=== PATIENT | male | born 1990 | race Caucasian/White ===

== ENCOUNTER 2020-11-18 13:18 | Outpatient (REF) | payer MEDICARE, MEDICAID, SELFPAY ==
[2020-11-18 14:20] LABS: MANUAL DIFF FLAG NO
[2020-11-18 14:30] LABS: Basophils Percent Auto 0.5 % (0-2); Eosinophils Percent Auto 0.7 % (0-4); Hematocrit 45.5 % (42-52); Hemoglobin 15.4 g/dl (14.0-18.0); Imm Gran Abs Auto 0.01 X10*3/uL (0.00-0.03); Imm Gran Pct Auto 0.2 % (0.0-0.4); Lymphocytes Absolute Auto 1.9 X10*3/uL (1.2-4.9); Lymphocytes Percent Auto 34.1 % (20-40); Mean Corpuscular HGB Conc 33.8 g/dl (31.0-36.0); Mean Corpuscular Hemoglobin 29.1 pg (27.0-33.0); Mean Corpuscular Volume 85.8 fL (80-98); Mean Platelet Volume 9.4 fL (9.4-12.4); Monocytes Absolute Auto 0.4 X10*3/uL (0.1-1.2); Monocytes Percent Auto 6.4 % (2-11); Neutrophils Absolute Auto 3.2 X10*3/uL (2.0-8.3); Neutrophils Percent Auto 58.1 % (45-73); Platelet Count 176 X10*3/uL (160-400); White Blood Count 5.5 X10*3/uL (4.8-10.8)
[2020-11-18 15:01] LABS: TSH reflex Free T4 1.42 uIU/mL (0.32-4.0)
[2020-11-18 15:07] LABS: Alanine Aminotransferase 32 U/L (0-40); Albumin Level 4.5 g/dL (3.5-5.0); Alkaline Phosphatase 65 U/L (39-117); Anion Gap 12 (12-20); Aspartate Amino Transferase 20 U/L (5-37); Bilirubin Total 0.6 mg/dL (0.0-1.0); Blood Urea Nitrogen 16 mg/dL (9-16); Calcium 8.8 mg/dL (8.4-10.2); Carbon Dioxide 26 mmol/L (22-29); Chloride 107 mmol/L (96-108); Cholesterol 143 mg/dL; Estimated Glomerular Filt Rate > 60; Glucose Fasting 103 mg/dL (60-99); HDL Cholesterol 59 mg/dL; LDL Cholesterol Calculated 70 mg/dl; Potassium 4.3 mmol/L (3.3-5.1); Sodium 141 mmol/L (135-145); Total Protein 6.9 g/dL (6.5-8.0); Triglycerides 70 mg/dL
== END 2020-11-18 13:19 | disposition home or self-care (01) ==
LOC: HO.HMGCLDS 13:18
PROVIDERS: PCP Nurse Practitioner Family; Visit Provider Nurse Practitioner Family
DX: R53.83 Other fatigue (principal)
CPT/HCPCS: 36415; 80053; 80061; 84443; 85025

== ENCOUNTER 2020-12-16 15:26 | Outpatient (REF) | payer MEDICARE, MEDICAID, SELFPAY ==
--- NOTE | ~2020-12-16 | CT_ITS ---
EXAMINATION: CT ABDOMEN WITH CONTRAST CLINICAL INFORMATION: Periumbilical pain COMPARISON: None TECHNIQUE: Contiguous axial thin section helical images of the abdomen were performed following the administration of oral contrast and 85 mL of Omnipaque 350 intravenous contrast. The data set was reformatted in the coronal and sagittal planes and reviewed on an independent workstation. This CT examination was performed using dose optimization techniques as appropriate, variously including the following: *Automated exposure control *Adjustment of mA and/or kV according to patient size (this includes techniques or standardized protocols for targeted exams where dose is matched to indication/reason for exam; i.e. extremities or head) *Use of iterative reconstruction technique DLP: 168 mGy-cm FINDINGS: LUNG BASES: Clear LIVER, GALLBLADDER, AND BILIARY TREE: Unremarkable PANCREAS: Unremarkable SPLEEN: Unremarkable ADRENAL GLANDS AND KIDNEYS: Unremarkable BOWEL LOOPS: Unremarkable. No hernia is seen. LYMPH NODES: Unremarkable VASCULAR: Unremarkable. BONES: Unremarkable CT/CT abdomen w con IMPRESSION: Unremarkable examination. No abdominal wall hernia seen.
== END 2020-12-16 15:27 | disposition home or self-care (01) ==
LOC: HO.CT 15:26
PROVIDERS: Visit Provider Nurse Practitioner Family
DX: R10.33 Periumbilical pain (principal)
CPT/HCPCS: 74160

== ENCOUNTER → 2021-03-26 13:07 | Outpatient (BNVA) | payer MEDICARE, MEDICAID, SELFPAY | PROVIDERS: PCP Nurse Practitioner Family; Visit Provider Urology | DX: N48.6 Induration penis plastica (principal) | CPT/HCPCS: 99202 ==

== ENCOUNTER → 2021-09-25 11:56 | Outpatient (BNVA) | payer MEDICARE, MEDICAID, SELFPAY | PROVIDERS: PCP Nurse Practitioner Family; Visit Provider Urology | DX: Z13.89 Encounter for screening for other disorder (principal) | CPT/HCPCS: Q3014 ==

== ENCOUNTER 2022-01-27 15:07 | Outpatient (REF) | payer MEDICARE, MEDICAID, SELFPAY ==
--- NOTE | ~2022-01-27 | US_ITS ---
EXAMINATION: US VENOUS ULTRASOUND WITH DOPPLER LOWER EXTREMITY, LEFT CLINICAL INFORMATION: Calf pain COMPARISON: None TECHNIQUE: Ultrasound of the deep veins is performed from the hip to the calf with compression sonography and color and pulse Doppler assessment. Spectral analysis with color-flow imaging is performed. FINDINGS: There is normal venous compression and respiratory variation and augmented flow. The visualized common femoral vein, superficial femoral vein, profunda femoral vein, popliteal vein, and the trifurcation region shows no evidence of deep venous thrombosis. There is no significant popliteal fossa cyst. If the patient's symptoms persist, followup ultrasound in 5 days 7 days might be of value to exclude proximal propagation from a non-visualized calf vein. US/US venous duplex LE LT IMPRESSION: No DVT demonstrated in the left lower extremity.
== END 2022-01-27 15:08 | disposition home or self-care (01) ==
LOC: HO.HMGCX 15:07
PROVIDERS: PCP Nurse Practitioner Family; Visit Provider Nurse Practitioner Family
DX: M79.662 Pain in left lower leg (principal)
CPT/HCPCS: 93971

== ENCOUNTER → 2022-02-01 13:25 | Outpatient (BNVA) | payer MEDICARE, MEDICAID, SELFPAY | PROVIDERS: PCP Nurse Practitioner Family; Visit Provider Orthopaedic Surgery | DX: M79.89 Other specified soft tissue disorders (principal); R20.0 Anesthesia of skin; R20.2 Paresthesia of skin | CPT/HCPCS: 99202 ==

== ENCOUNTER 2022-02-18 06:16 | Day surgery (SDC) | payer MEDICARE, MEDICAID, SELFPAY ==
--- NOTE | 2022-02-17 08:42 | HO.ANESPROP2 ---
Documented by User: Emely Blanc NP 02/17/22 08:43 HPI - Anesthesia Eval Consult details Narrative: 31yo M Left Volar wrist Excisional Mass biopsy, Carpal Tunnel Release PMFSH Active Problems Active Problems: All Active Problems (Updated 02/01/22 @ 14:29 by Carmen Jackson MD) Numbness and tingling in left hand (Acute) Mass of soft tissue of left upper extremity (Acute) Tenderness of left calf (Acute) Ganglion cyst (Acute) Sprain of left hand (Acute) Erectile dysfunction (Acute) Anxiety (Acute) OCD (obsessive compulsive disorder) (Acute) Umbilical pain (Acute) Peyronie disease (Acute) Fatigue (Acute) Past Medical History Medical History Anxiety OCD (obsessive compulsive disorder) Family History Family History Father Recovering alcoholic Mental illness in member of household Mother Mental illness in member of household Recovering alcoholic Surgical History Surgical History No pertinent past surgical history Social History Social History Housing: Apartment Alcohol intake: current Alcohol intake frequency: holidays/special occasions only Patient Tobacco Use Status: Never used Tobacco e-Cigarette/Vaping Use: Never Used Second Hand Smoke Exposure: Yes Use of substances other than those prescribed or required for medical reasons: Yes Substance Use Type: Marijuana Substance Use Type Other:: states no marijuana for 2 weeks Substance Use Frequency: Daily Are you DNR?: No Advance Directives: No Advance Directives Information Provided: Yes Nutrition Risks: No Nutritional Risk service: No Current occupational status: disabled 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 Meds Allergies Allergy/AdvReac Type Severity Reaction Status Date / Time mold Allergy Unknown Unknown Verified 02/18/22 06:47 pollen Allergy Unknown Unknown Uncoded 02/01/22 13:49 Home Medications Medication Instructions Recorded Confirmed Last Taken Type risperidone 3 mg tablet mg PO 01/27/22 01/27/22 Unknown History hydroxyzine HCl 50 mg tablet mg PO 02/01/22 Unknown History Exam Exam Date and Time: February 17, 2022841 Assessment and Plan Assessment Anesthesia Assessment: Chart Reviewed Documented by User: Jimi Sanchez MD 02/18/22 08:49 HPI - Anesthesia Eval Consult details Narrative: 31yo M Left Volar wrist Excisional Mass biopsy, Carpal Tunnel Release right eye redness with whitish discharge noted, pt reports itching started this morning PMFSH Past Medical History Medical History Anxiety OCD (obsessive compulsive disorder) Family History Family History Father Recovering alcoholic Mental illness in member of household Mother Mental illness in member of household Recovering alcoholic Family history of problems with anesthesia: No Surgical History Surgical History No pertinent past surgical history History of Problems with Anesthesia: No Social History Social History Housing: Apartment Alcohol intake: current Alcohol intake frequency: holidays/special occasions only Patient Tobacco Use Status: Never used Tobacco e-Cigarette/Vaping Use: Never Used Second Hand Smoke Exposure: Yes Use of substances other than those prescribed or required for medical reasons: Yes Substance Use Type: Marijuana Substance Use Type Other:: states no marijuana for 2 weeks Substance Use Frequency: Daily Are you DNR?: No Advance Directives: No Advance Directives Information Provided: Yes Nutrition Risks: No Nutritional Risk service: No Current occupational status: disabled 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 Meds Allergies Allergy/AdvReac Type Severity Reaction Status Date / Time mold Allergy Unknown Unknown Verified 02/18/22 06:47 pollen Allergy Unknown Unknown Uncoded 02/01/22 13:49 Home Medications Medication Instructions Recorded Confirmed Last Taken Type risperidone 3 mg tablet mg PO 01/27/22 01/27/22 Unknown History hydroxyzine HCl 50 mg tablet mg PO 02/01/22 Unknown History Exam Airway Mallampati Class: III TM Dist: >3cm Neck ROM: Full Assessment and Plan Assessment Anesthesia Assessment: Anesthesia Plan Discussed Final Anesthetic Review Family History of Problems with Anesthesia: No History of Problems with Anesthesia: No NPO: Yes ASA Class: II Final Preanesthetic Review: No Changes in Pt Med Stat, Meds/Allgs Chart Reviewed, Consent Obtained/Reviewed and Anes Risks/Benef Reviewed Patient Risk: Low Procedure Risk: Low Anesthetic Plan Anesthetic Plan: GA Disposition: Standard PACU
[2022-02-18] VITALS (10 sets, daily range): BP systolic 129–144; BP diastolic 83–95; PULSE 56–102; RESP 14–18; TEMP 36.2–36.6; O2SAT 98–100; BMI 25.0
[2022-02-18] MEDS: Lactated Ringers 1,000 ML 100 ML IVCONT (06:57)
[2022-02-18] MEDS: Albuterol/Iprat 2.5/0.5MG 3 ML AMPUL.NEB INHALE (08:52)
--- NOTE | 2022-02-18 08:59 | MHC.SHP ---
Pre-Procedural Eval Section A Date of Service: 02/18/22 The patient is an INPATIENT: No Changes since office visit: No Cold of Flu in the past 2 weeks, No New Medical Problems, No Changes in Medication and No Patient answered all questions The History & Physical has been completed within 30 days and I have reviewed it.: Yes Section B Chief Complaint: carpal tunnel syndrome and left volar wrist mass Allergies: Allergies Allergy/AdvReac Type Severity Reaction Status Date / Time mold Allergy Unknown Unknown Verified 02/18/22 06:47 pollen Allergy Unknown Unknown Uncoded 02/01/22 13:49 Plan I have reviewed the history and physical and performed a pertinent physical examination on my patient. No changes have occurred unless specified.
--- NOTE | 2022-02-18 08:59 | W.PM.OPN ---
Operative Note Operative Note Date of Service: 02/18/22 Narrative: Operative Note Narrative: Preop diagnosis: 1. leftCarpal tunnel syndrome 2. Left volar wrist mass Postop diagnosis: Same Procedure: 1. Left wrist flexor tenosynovectomy 2. Excisional biopsy of mass from the FDP tendon to the middle finger 3. Left carpal tunnel release Surgeon: Carmen Jackson MD Anesthesia: General Anesthesia Findings: hypertrophic tenosynovium found about the flexor tendons of the patient's left wrist as they pass through the carpal tunnel. Also found was a solid soft tissue mass that measured approximately 1 cm in diameter by perhaps 1.2 cm in length and found attached to the volar surface of the FDP tendon to the middle finger just distal to the carpal tunnel and roughly at the proximal origin of the Lumbrical muscle belly. Implants: none Tourniquet time: 21 minutes EBL: 5.0 ml Specimen: left volar wrist mass and tenosynovium sent for histopathology. A sample of the hypertrophic tenosynovium was also sent for cultures including AFB. Drains: None Complications: None Disposition: Brought to the recovery room in stable condition Plan: Follow-up in 10-14 days for wound check, suture removal and to check pathology Indications: The patient is a 31 year old man with left carpal tunnel syndrome and a left volar wrist mass which appears to be attached to 1 of the flexor tendons as it passes through the carpal tunnel. . The risks and benefits of operative treatment, including but not limited to risk of damage to blood vessels, nerves, tendons, infection, recurrence, persistent pain or numbness, incomplete resolution of preoperative symptoms, or need for further surgery were discussed with the patient and they wished to proceed with surgery. Procedure: Once consent was obtained patient was brought back to the operating suite and placed in the operating table in a supine position. . Perioperative antibiotics and anesthesia was administered by the anesthesia team. A tourniquet was applied to the proximal aspect of the Left upper extremity and the limb was prepped and draped in a standard surgical fashion. The limb was elevated exsanguinated with Esmarch bandage and the tourniquet inflated to 250 mm of mercury for a total tourniquet time of Twenty-one minutes. A 2.5 cm longitudinal incision was made centered over the left carpal tunnel then extended somewhat ulnarly at the distal wrist crease for another 1.5 cm. The incision was made through the skin to the subcutaneous tissues using a #15 blade. Dissection was made down to the level of the transverse carpal ligament and volar forearm fashion with care being taken to protect the palmar cutaneous nerve. Once the transverse carpal ligament was clearly visualized, a longitudinal incision was made in the transverse carpal ligament 1st using a #15 blade, then using tenotomy scissors under direct visualization. Care was taken to look for and protect the motor branch of the median nerve when seen in this area. Once satisfied with our carpal tunnel release the wound was irrigated with normal saline. With the fingers flexed I was able to palpate the mass in the mid palm just distal to our carpal tunnel release. I noted that he had hypertrophic tenosynovium that was abundant and about the flexor tendons as they pass through the carpal tunnel. I then performed a tenosynovectomy freeing up some of the flexor tendons in this area and placing some of the abundant tenosynovium on the back table to be sent for both histopathology and for cultures including Gram stain A&A AFB and fungus. The FDP tendons to the middle and index fingers were somewhat attached through this hypertrophic tenosynovium, and there was a solid oval soft tissue mass measuring approximately 1 cm in diameter by 1.5 cm in length the was attached to the volar surface of the FDP tendon to the middle finger. I was able to draw this tendon back roughly to the carpal tunnel area. I was then able to dissect the mass free from the FDP tendon to the middle finger. It should be noted this was also roughly at the proximal origin of the lumbrical muscle belly. The mass was then removed from the patient and placed on the back table to be sent for histopathology. After the mass was removed from the patient, I did make a small longitudinal incision in the mass. It is a solid soft tissue mass and not a cyst. At this point the tourniquet was deflated and hemostasis obtained with a brief period of local pressure and bipolar electrocautery. The wound was copiously irrigated with normal saline. The skin edges were reapproximated with 5-0 nylon suture. The wound was infiltrated with some 0.25% plain Marcaine for postop pain control and a sterile dressing was applied. The patient appears to have tolerated the procedure well and with no complications. All digits were well vascularized conclusion of the case.
[2022-02-18] MEDS: ondansetron HCL 4 MG/2 ML VIAL IVPUSH (10:46)
== END 2022-02-18 12:50 | disposition home or self-care (01) ==
PROVIDERS: PCP Nurse Practitioner Family; Visit Provider Orthopaedic Surgery
PROC: (CPT 64721; principal; 2022-02-18 08:40)
PROC: (CPT 64721; 2022-02-18 08:40)
DX: G56.02 Carpal tunnel syndrome, left upper limb (principal); R20.0 Anesthesia of skin; M79.89 Other specified soft tissue disorders; R22.32 Localized swelling, mass and lump, left upper limb; F42.9 Obsessive-compulsive disorder, unspecified; F41.9 Anxiety disorder, unspecified; F12.90 Cannabis use, unspecified, uncomplicated; Z79.899 Other long term (current) drug therapy
CPT/HCPCS: 64721; 25115; 87071; 87073; 87102; 87116; 87205; 88304; 94640; J0690; J1100; J2250; J2405; J2550; J3010

== ENCOUNTER → 2022-03-23 14:55 | Outpatient (BNVA) | payer MEDICARE, MEDICAID, SELFPAY | PROVIDERS: PCP Nurse Practitioner Family; Visit Provider Urology | DX: N48.6 Induration penis plastica (principal); N52.9 Male erectile dysfunction, unspecified | CPT/HCPCS: 99212 ==

== ENCOUNTER 2022-04-21 09:30 | Outpatient (RCR) | payer MEDICARE, MEDICAID, SELFPAY ==
--- NOTE | 2022-04-21 10:11 | MHC.OT.OD ---
[address] [phone] F: [phone] Occupational Therapy Daily Note Start Time: 929 End Time: 100 Visit Duration: 35 Billable Time: 30 Date of Evaluation: 03/10/22 Treatments to Date: 4 Cancellations to Date: No Shows to Date: Authorized Treatment: Insurance End Date: Subjective: I've been slacking with the exerices..If I use both hands I can lift like 35 lbs. Can't lift like a heavy trash bag with my left Pain Score: 2 Pain Location: left carpal scat Objective: Measurements taken Wrist AROM flex/ext, deviation and sup/pro x 20 each. Progressed to 2 and 3 lb wrist ext .. 3 and 5 lb wrist flexion curls 8 lb bicep curls Practice with hand gripper Practice with FDT pre test. Practiced passive wrist ext stretch ,partial wt bearing at the wall with wall push ups Progressed to eccentric wrist ext with yellow Theraband loop. 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 Issued for HEP Tests and Measures: Residential Counselor 80 lb L 60 lb Functional Dexterity Test R: 23.8 seconds L: 26.0 seconds Assessment: Goals met for pain, ROM, strength and hand dexterity. LUE strength improving with HEP . I anticipate continued improvement with his HEP . Skilled OT not needed at this time. 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
== END 2022-04-21 10:12 | disposition home or self-care (01) ==
LOC: HO.OT 09:30
PROVIDERS: PCP Nurse Practitioner Family; Visit Provider Orthopaedic Surgery
DX: M79.89 Other specified soft tissue disorders (principal)
CPT/HCPCS: 97110; 97165

== ENCOUNTER → 2022-04-27 13:32 | Outpatient (BNVA) | payer MEDICARE, MEDICAID, SELFPAY | PROVIDERS: PCP Nurse Practitioner Family; Visit Provider Physician Assistant | DX: Z09 Encounter for follow-up examination after completed treatment for conditions other than malignant neoplasm (principal) | CPT/HCPCS: 99212 ==

== ENCOUNTER 2022-09-22 11:08 | Outpatient (REF) | payer MEDICARE, MEDICAID, SELFPAY ==
[2022-09-22 11:24] LABS: MANUAL DIFF FLAG NO
[2022-09-22 12:05] LABS: Basophils Percent Auto 0.4 % (0-2); Eosinophils Percent Auto 0.8 % (0-4); Hematocrit 44.2 % (42.0-52.0); Hemoglobin 15.4 g/dl (14.0-18.0); Imm Gran Abs Auto 0.01 X10*3/uL (0.00-0.03); Imm Gran Pct Auto 0.2 % (0.0-0.4); Lymphocytes Absolute Auto 1.4 X10*3/uL (1.2-4.9); Lymphocytes Percent Auto 27.5 % (20-40); Mean Corpuscular HGB Conc 34.8 g/dl (31.0-36.0); Mean Corpuscular Volume 83.2 fL (80.0-98.0); Mean Platelet Volume 9.3 fL (9.4-12.4); Monocytes Absolute Auto 0.4 X10*3/uL (0.1-1.2); Neutrophils Absolute Auto 3.2 x10*3/uL (2.0-8.3); Neutrophils Percent Auto 63.1 % (45-73); Platelet Count 163 X10*3/uL (160-400); Red Blood Count 5.31 X10*6/uL (4.60-5.80); Red Cell Distribution Width 11.8 % (11.0-16.0); White Blood Count 5.1 X10*3/uL (4.8-10.8)
[2022-09-22 12:41] LABS: Estimated Average Glucose 97 mg/dL
[2022-09-22 12:57] LABS: Anion Gap 14 (12-20); Blood Urea Nitrogen 15 mg/dL (9-16); Carbon Dioxide 24 mmol/L (22-29); Chloride 108 mmol/L (96-108); Cholesterol 152 mg/dL; Estimated Glomerular Filt Rate > 60; Glucose Random 98 mg/dL (60-115); HDL Cholesterol 44 mg/dL; LDL Cholesterol Calculated 99 mg/dl; Potassium 4.3 mmol/L (3.3-5.1); Sodium 142 mmol/L (135-145); Triglycerides 47 mg/dL
[2022-09-23 05:33] LABS: Prolactin 17.9 ng/mL (2.0-18.0)
== END 2022-09-22 11:09 | disposition home or self-care (01) ==
LOC: HO.LAB 11:08
PROVIDERS: PCP Nurse Practitioner Family; Visit Provider Clinical Nurse Specialist Psychiatric/Mental Health, Child & Adolescent
DX: F33.1 Major depressive disorder, recurrent, moderate (principal); Z79.899 Other long term (current) drug therapy
CPT/HCPCS: 36415; 80048; 80061; 83036; 84146; 85025

== ENCOUNTER → 2022-11-25 10:37 | Outpatient (BNVA) | payer MEDICARE, MEDICAID, SELFPAY | PROVIDERS: PCP Nurse Practitioner Family; Visit Provider Urology | DX: N48.6 Induration penis plastica (principal); N52.9 Male erectile dysfunction, unspecified | CPT/HCPCS: 99212 ==

== ENCOUNTER 2023-05-31 09:52 | Outpatient (AMB) | payer MEDICARE, MEDICAID, SELFPAY ==
--- NOTE | 2023-05-31 09:52 | A.OFFVIS_ITS ---
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 He is a patient of Dr. Mccallum. He is seen for the following urologic reasons - Peyronie's disease - erectile dysfunction Telemedicine Evaluation 15 min Consultation Carnival Parveen Video attempted Peyronie's stable Does have persistent erectile related issues Secondary to psychiatric medications Does better when on low-dose daily had tadalafil. Also had good response when added pentoxyfilline Prescriptions provided 6 month follow-up Peyronie's disease with associated erectile dysfunction Chronic sleep disruption Heavy marijuana use - 03/05 has ceased Discussion today regarding lack of restorative sleep Recommendation to decrease marijuana use and improve sleep hygiene Prescription provided for antioxidant therapy Written information provided regarding Peyronie's disease No evidence of calcification PFSH Medical History Anxiety OCD (obsessive compulsive disorder) Surgical History No pertinent past surgical history Family History Father Recovering alcoholic Mental illness in member of household Mother Mental illness in member of household Recovering alcoholic Social History Housing: Apartment Alcohol intake: current Alcohol intake frequency: holidays/special occasions only Patient Tobacco Use Status: Never used Tobacco e-Cigarette/Vaping Use: Never Used Second Hand Smoke Exposure: Yes Substance Use Type: Marijuana service: No Current occupational status: disabled 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 Review of Systems Const All systems reviewed & are unremarkable except as noted in HPI and below Reports no additional complaints Resp Reports no additional complaints GI Reports no additional complaints Reports as per HPI Musc Reports no additional complaints Physical Exam Telemedicine evaluation Appropriate responses Regular breathing rate and rhythm HEENT Head: Yes normal to inspection Ears: hearing grossly normal bilaterally Eyes General: appearance normal, both eyes and all related structures Neck Neck: Yes normal visual inspection Chest Chest palpation & inspection: normal inspection of the chest Resp Effort & Inspection: normal respiratory effort and able to speak in complete sentences Assessment & Plan Assessment & Plan (1) Erectile dysfunction: Code(s): N52.9 - Male erectile dysfunction, unspecified (2) Peyronie disease: Code(s): N48.6 - Induration penis plastica Plan Prescription provided 6 month follow-up Medications: New pentoxifylline ER administer with meals 400 mg PO BID 90 days 180 tabs 1RF N48.6 - Induration penis plastica Refilled tadalafil 5 mg PO Q OTHER DAY 90 days 90 tabs 1RF sexual activity Patient Instructions: Imaging studies, laboratory and physical exam results were discussed and reviewed in detail. No major barriers to patient understanding were identified. An opportunity to ask questions regarding the treatment plan was provided. All questions were answered. The patient expressed understanding and agreement with the above treatment plan. The patient is aware they should contact our office by phone for worsening of their current condition or the appearance of new urologic symptoms. Compliance is encouraged with any medications and followup testing that is ordered. It is a privilege to participate in the urologic care of your patient. If you have any questions or concerns regarding treatment for the above conditions, or other urologic issues, please do not hesitate to contact me. The office telephone contact is [phone]. This note is constructed using voice recognition software. While every effort has been made to ensure accuracy ceo and co founder errors may have been included. Yours sincerely, Dr Ye Hernandez MD, [facility] - Urology Providers of Expert, Compassionate Care for the Genitourinary System Quality Reporting (2019) Adult ([facility] 138/10/06/68) Smoking risk assessment performed?: Yes Patient Tobacco Use Status: Never used Tobacco Telehealth Telehealth Location of provider rendering services: practice address Location of patient: address on file Patient Identification confirmed using: Name, : Yes Telehealth method: video Patient verbally consented to treatment: Yes Patient verbally consented to billing insurance company: Yes Patient informed of any privacy concerns related to visit: Yes Coding Level of Care Code Tele Est Pt Level 3 (17438) Diagnoses Erectile dysfunction N52.9 Peyronie disease N48.6
== END 2023-05-31 11:07 | disposition home or self-care (01) ==
LOC: HO.HUSH 09:52
PROVIDERS: PCP Nurse Practitioner Family; Visit Provider Urology
DX: N52.9 Male erectile dysfunction, unspecified (principal); N48.6 Induration penis plastica
CPT/HCPCS: 99442

== ENCOUNTER → 2023-05-31 09:52 | Outpatient (BNVA) | payer MEDICARE, MEDICAID, SELFPAY | PROVIDERS: PCP Nurse Practitioner Family; Visit Provider Urology ==

== ENCOUNTER 2023-11-05 10:24 | Outpatient (AMB) | payer MEDICARE, MEDICAID, SELFPAY ==
[2023-11-05 11:02] VITALS: BP 110/60; PULSE 66; TEMP 36.4; O2SAT 97; BMI 26.6
--- NOTE | 2023-11-05 11:02 | AM.OFFWIN_ITS ---
Intake Vital Signs 11/05/23 11:02 Height 6 ft 2 in Weight 207 lb BMI 26.6 BP 110/60 Blood Pressure Location Lt brachial Position Sitting Pulse 66 Pulse Source Pulse Oximeter Temp 97.6 F Temp Source Oral Pulse Oximetry (%) 97 Oxygen Delivery Method Room Air Intake Visit Reasons: EP ear wax removal, Burn on finger ?Infection Intake Note: Pt is here today c/o bilateral ear wax blocked and Rt hand middle finger burned it ?infection * Patient Tobacco Use Status: Never used Tobacco Allergies mold Allergy (Unknown, Verified 11/05/23 11:02) Unknown pollen Allergy (Unknown, Uncoded 11/05/23 11:02) Unknown HPI EP ear wax removal, Burn on finger ?Infection HPI Details Patient is a 33-year-old male who comes the walk-in clinic complaining of feeling his ears blocked for some time now, with decreased hearing. He denies recent respiratory infection, ear pain, apparent discharge, dizziness or vertigo, or other associated symptoms. Reviewed past medical history with patient [facility] Medical History Anxiety OCD (obsessive compulsive disorder) Surgical History No pertinent past surgical history Family History Father Recovering alcoholic Mental illness in member of household Mother Mental illness in member of household Recovering alcoholic Social History Housing: Apartment Alcohol intake: current Alcohol intake frequency: holidays/special occasions only Patient Tobacco Use Status: Never used Tobacco e-Cigarette/Vaping Use: Never Used Second Hand Smoke Exposure: Yes Substance Use Type: Marijuana service: No Current occupational status: disabled 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 Physical Exam Vital Signs: Last Vital Signs Temp 97.6 F 11/05/23 11:02 Pulse 66 11/05/23 11:02 BP 110/60 11/05/23 11:02 Pulse Ox 97 11/05/23 11:02 Oxygen Delivery Method Room Air 11/05/23 11:02 BMI result Body Mass Index 26.6 HEENT Ears: hearing grossly normal bilaterally, external ears normal, EAC's normal (Cerumen evacuated adequately) and TM abnormal (Some erythema post ear lavage) Office Procedures Cerumen Removal From which ear canal was the cerumen removed: bilateral Removal: irrigation Notes: patient tolerated procedure well and no complications 90997-Lof Irrigation/Lavage Assessment & Plan Assessment & Plan (1) Cerumen impaction: Code(s): H61.20 - Impacted cerumen, unspecified ear Qualifiers: Laterality: bilateral Qualified Code(s): H61.23 - Impacted cerumen, bilateral Plan: Patient with history of excessive cerumen production, had bilateral ear canals irrigated today with removal cerumen adequately, and symptoms of hearing loss and blocked sensation was resolved. No complications with procedure. He will follow up if any issues arise Coding Level of Care Code Est Pt Level 3 (52853) Diagnoses Bilateral impacted cerumen H61.23 Laterality: bilateral CPT Codes Office Procedure - CPT: 64328-Udm Irrigation/Lavage ([id number])
== END 2023-11-05 14:39 | disposition home or self-care (01) ==
PROVIDERS: PCP Nurse Practitioner Family; Visit Provider Physician Assistant Medical
DX: H61.23 Impacted cerumen, bilateral (principal)
CPT/HCPCS: 69209; 99213

== ENCOUNTER 2023-11-29 11:40 | Outpatient (AMB) | payer MEDICARE, MEDICAID, SELFPAY ==
--- NOTE | 2023-11-29 11:45 | A.OFFVIS_ITS ---
Intake Intake Visit Reasons: 6M Med Review(pentoxifylline)Confirmed Intake Note: Patient is Present for Follow Up Urology Medication: Tadalafil, Pentoxifyline Antibiotic Allergies: None Blood Thinners: None Allergies mold Allergy (Unknown, Verified 11/05/23 11:02) Unknown pollen Allergy (Unknown, Uncoded 11/05/23 11:02) Unknown Medication List - Last Reconciled 11/29/23 by Ye Hernandez MD budesonide-formoterol 80-4.5 mcg/actuation (Symbicort) 2 puffs inhalation BID 30 days bupropion HCl SR mg PO fluticasone propionate 50 mcg/actuation 1 spray intranasal BID 30 days paliperidone palmitate (Invega Sustenna) mg IM pentoxifylline ER 400 mg PO ONCE 90 days propranolol mg PO tadalafil 5 mg PO Q OTHER DAY 90 days HPI HPI Comments History of Present Illness Details Rogelio is a pleasant male. He is a patient of Dr. Mccallum. He is seen for the following urologic reasons - Peyronie's disease - erectile dysfunction Peyronie's stable Does have persistent erectile related issues Secondary to psychiatric medications Did have recent hospital admission and has had some issues since change in medications Would like to continue with low-dose tadalafil and daily pentoxifylline 12m f/u Peyronie's disease with associated erectile dysfunction Chronic sleep disruption Heavy marijuana use - 03/05 has ceased Discussion today regarding lack of restorative sleep Recommendation to decrease marijuana use and improve sleep hygiene Prescription provided for antioxidant therapy Written information provided regarding Peyronie's disease No evidence of calcification PFSH Medical History Anxiety OCD (obsessive compulsive disorder) Surgical History No pertinent past surgical history Family History Father Recovering alcoholic Mental illness in member of household Mother Mental illness in member of household Recovering alcoholic Social History Housing: Apartment Alcohol intake: current Alcohol intake frequency: holidays/special occasions only Patient Tobacco Use Status: Never used Tobacco e-Cigarette/Vaping Use: Never Used Second Hand Smoke Exposure: Yes Substance Use Type: Marijuana service: No Current occupational status: disabled 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 Review of Systems Const Denies chills and Denies fever(s) Card Reports no additional complaints and Denies syncope Resp Denies cough GI Denies abdominal pain and Denies heartburn Reports as per HPI and Denies change in libido Neuro Denies syncope Psych Denies change in libido Endo Denies change in libido Physical Exam Const General: cooperative, healthy appearing, comfortable and no acute distress Orientation/consciousness: patient oriented x3 HEENT Face and sinus: Yes normal facial exam Mouth: moist mucous membranes Neck Neck: Yes normal visual inspection, Yes full ROM and Yes trachea midline Chest Chest palpation & inspection: normal inspection of the chest Resp Effort & Inspection: normal respiratory effort, able to speak in complete sentences and no respiratory distress GI Inspection: Yes normal to inspection Back/Spine/Pelvis Cervical Spine: normal cervical lordosis Thoracic/Lumbar Spine: thoracic and lumbar spine normal to inspection Skin General skin exam: no rashes or lesions noted Neuro General: patient oriented x3, gait normal, tone normal and moves all extremities Extrem General: Yes normal to inspection and Yes capillary refill normal Assessment & Plan Assessment & Plan (1) Peyronie disease: Code(s): N48.6 - Induration penis plastica (2) Erectile dysfunction: Code(s): N52.9 - Male erectile dysfunction, unspecified Plan Twelve month follow-up Medications: Changed From pentoxifylline ER administer with meals 400 mg PO BID 90 days 180 tabs 1RF N48.6 - Induration penis plastica To pentoxifylline ER administer with meals 400 mg PO ONCE 90 days 90 tabs 3RF N48.6 - Induration penis plastica Refilled tadalafil 5 mg PO Q OTHER DAY 90 days 90 tabs 3RF sexual activity Patient Instructions: Imaging studies, laboratory and physical exam results were discussed and reviewed in detail. No major barriers to patient understanding were identified. An opportunity to ask questions regarding the treatment plan was provided. All questions were answered. The patient expressed understanding and agreement with the above treatment plan. The patient is aware they should contact our office by phone for worsening of their current condition or the appearance of new urologic symptoms. Compliance is encouraged with any medications and followup testing that is ordered. It is a privilege to participate in the urologic care of your patient. If you have any questions or concerns regarding treatment for the above conditions, or other urologic issues, please do not hesitate to contact me. The office telephone contact is [phone]. This note is constructed using voice recognition software. While every effort has been made to ensure accuracy front end developer javascript html css errors may have been included. Yours sincerely, Dr Ye Hernandez MD, [facility] - Urology Providers of Expert, Compassionate Care for the Genitourinary System Quality Reporting (2020) Adult ([facility] 138/10/06/68) Smoking risk assessment performed?: Yes Patient Tobacco Use Status: Never used Tobacco Coding Level of Care Code Est Pt Level 4 (65128) Diagnoses Peyronie disease N48.6 Erectile dysfunction N52.9
== END 2023-11-29 12:08 | disposition home or self-care (01) ==
PROVIDERS: PCP Nurse Practitioner Family; Visit Provider Urology
DX: N48.6 Induration penis plastica (principal); N52.9 Male erectile dysfunction, unspecified
CPT/HCPCS: 99213

== ENCOUNTER → 2023-11-29 11:40 | Outpatient (BNVA) | payer MEDICARE, MEDICAID, SELFPAY | PROVIDERS: PCP Nurse Practitioner Family; Visit Provider Urology | DX: N48.6 Induration penis plastica (principal); N52.9 Male erectile dysfunction, unspecified | CPT/HCPCS: 99212 ==

== ENCOUNTER 2023-12-28 13:16 | Outpatient (REF) | payer MEDICARE, MEDICAID, SELFPAY ==
[2023-12-28 16:12] LABS: MANUAL DIFF FLAG NO
[2023-12-28 16:16] LABS: Basophils Percent Auto 0.4 % (0-2); Eosinophils Percent Auto 0.7 % (0-4); Hematocrit 42.9 % (42.0-52.0); Hemoglobin 14.9 g/dl (14.0-18.0); Imm Gran Abs Auto 0.01 X10*3/uL (0.00-0.03); Imm Gran Pct Auto 0.2 % (0.0-0.4); Lymphocytes Absolute Auto 1.6 X10*3/uL (1.2-4.9); Lymphocytes Percent Auto 28.7 % (20-40); Mean Corpuscular HGB Conc 34.7 g/dl (31.0-36.0); Mean Corpuscular Volume 83.6 fL (80.0-98.0); Monocytes Absolute Auto 0.3 X10*3/uL (0.1-1.2); Monocytes Percent Auto 5.7 % (2-11); Neutrophils Absolute Auto 3.6 x10*3/uL (2.0-8.3); Neutrophils Percent Auto 64.3 % (45-73); Platelet Count 165 X10*3/uL (160-400); Red Blood Count 5.13 X10*6/uL (4.60-5.80); White Blood Count 5.6 X10*3/uL (4.8-10.8)
[2023-12-28 16:23] LABS: Estimated Average Glucose 100 mg/dL; Hemoglobin A1c % 5.1 % (<6.0)
[2023-12-28 16:37] LABS: Anion Gap 14 (12-20); Blood Urea Nitrogen 15 mg/dL (9-16); Carbon Dioxide 23 mmol/L (22-29); Chloride 108 mmol/L (96-108); Cholesterol 149 mg/dL (<200); Estimated Glomerular Filt Rate > 60; Glucose Random 84 mg/dL (60-115); HDL Cholesterol 52 mg/dL (>40); LDL Cholesterol Calculated 85 mg/dL (<100); Sodium 141 mmol/L (135-145); Triglycerides 60 mg/dL (<150)
[2023-12-28 16:53] LABS: Free T4 (Free Thyroxine) 0.84 ng/dL (0.71-1.85); Thyroid Stimulating Hormone 0.64 uIU/mL (0.32-4.0)
== END 2023-12-28 13:17 | disposition home or self-care (01) ==
LOC: HO.HMGCLDS 13:16
PROVIDERS: Visit Provider Clinical Nurse Specialist Psychiatric/Mental Health, Child & Adolescent
DX: Z79.899 Other long term (current) drug therapy (principal)
CPT/HCPCS: 36415; 80048; 80061; 83036; 84146; 84439; 84443; 85025

== ENCOUNTER 2024-03-13 11:01 | Outpatient (REF) | payer MEDICARE, MEDICAID, SELFPAY ==
[2024-03-13 13:31] LABS: MANUAL DIFF FLAG NO
[2024-03-13 14:09] LABS: Basophils Percent Auto 0.4 % (0-2); Eosinophils Percent Auto 0.4 % (0-4); Hematocrit 44.1 % (42.0-52.0); Hemoglobin 15.5 g/dl (14.0-18.0); Imm Gran Abs Auto 0.01 X10*3/uL (0.00-0.03); Imm Gran Pct Auto 0.2 % (0.0-0.4); Lymphocytes Absolute Auto 1.4 X10*3/uL (1.2-4.9); Lymphocytes Percent Auto 28.5 % (20-40); Mean Corpuscular HGB Conc 35.1 g/dl (31.0-36.0); Mean Corpuscular Hemoglobin 28.9 pg (27.0-33.0); Mean Corpuscular Volume 82.3 fL (80.0-98.0); Monocytes Absolute Auto 0.3 X10*3/uL (0.1-1.2); Monocytes Percent Auto 6.3 % (2-11); Neutrophils Absolute Auto 3.3 x10*3/uL (2.0-8.3); Neutrophils Percent Auto 64.2 % (45-73); Platelet Count 158 X10*3/uL (160-400); Red Blood Count 5.36 X10*6/uL (4.60-5.80); Red Cell Distribution Width 12.2 % (11.0-16.0); White Blood Count 5.1 X10*3/uL (4.8-10.8)
[2024-03-13 14:20] LABS: Estimated Average Glucose 97 mg/dL
[2024-03-13 14:42] LABS: Anion Gap 12 (12-20); Blood Urea Nitrogen 15 mg/dL (9-16); Calcium 9.2 mg/dL (8.4-10.2); Carbon Dioxide 24 mmol/L (22-29); Chloride 109 mmol/L (96-108); Cholesterol 157 mg/dL (<200); Estimated Glomerular Filt Rate > 60; Glucose Random 99 mg/dL (60-115); HDL Cholesterol 44 mg/dL (>40); LDL Cholesterol Calculated 100 mg/dL (<100); Potassium 3.9 mmol/L (3.3-5.1); Sodium 141 mmol/L (135-145); Thyroid Stimulating Hormone 0.66 uIU/mL (0.32-4.0); Triglycerides 68 mg/dL (<150)
== END 2024-03-13 11:02 | disposition home or self-care (01) ==
LOC: HO.HMGCLDS 11:01
PROVIDERS: PCP Nurse Practitioner Family; Visit Provider Clinical Nurse Specialist Psychiatric/Mental Health, Child & Adolescent
DX: Z79.899 Other long term (current) drug therapy (principal)
CPT/HCPCS: 36415; 80048; 80061; 83036; 84146; 84443; 85025

== ENCOUNTER 2024-03-31 09:54 | Outpatient (AMB) | payer MEDICARE, MEDICAID, SELFPAY ==
--- NOTE | 2024-03-31 10:52 | MHC.OFFWIV ---
Intake Vital Signs 03/31/24 10:53 Height 6 ft 2 in Weight 210 lb BMI 27.0 BP 124/66 Blood Pressure Location Rt brachial Position Sitting Pulse 56 Pulse Source Pulse Oximeter Temp 98.1 F Temp Source Oral Pulse Oximetry (%) 98 Oxygen Delivery Method Room Air Intake Visit Reasons: EP ?Tick Bite Intake Note: pt c/o ? tick bite. RT arm. States he had bulls eye 1 week ago. Says he woke up with palpitations this morning Patient Tobacco Use Status: Never used Tobacco Allergies mold Allergy (Unknown, Verified 03/31/24 10:52) Unknown pollen Allergy (Unknown, Uncoded 03/31/24 10:52) Unknown Do you need a note to return to daycare/school/sports/work: No HPI EP ?Tick Bite HPI Details Patient presents with red asher on his right upper arm. He says he feels fairly certain that he had a tick bite in their last week. Had an expanding rash and came to the walk-in but says it was too crowded so he did not stay for evaluation. Expanding ring has disappeared but he still has a red asher where the bite was. He does not know how long a tick was attached. No fevers or chills No malaise or weakness No ongoing rash PFSH Medical History Anxiety OCD (obsessive compulsive disorder) Surgical History No pertinent past surgical history Family History Father Recovering alcoholic Mental illness in member of household Mother Mental illness in member of household Recovering alcoholic Social History Housing: Apartment Alcohol intake: current Alcohol intake frequency: holidays/special occasions only Patient Tobacco Use Status: Never used Tobacco e-Cigarette/Vaping Use: Never Used Second Hand Smoke Exposure: Yes Substance Use Type: Marijuana service: No Current occupational status: disabled 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 Review of Systems Const Details: See HPI Physical Exam Vital Signs: Last Vital Signs Temp 98.1 F 03/31/24 10:53 Pulse 56 03/31/24 10:53 BP 124/66 03/31/24 10:53 Pulse Ox 98 03/31/24 10:53 Oxygen Delivery Method Room Air 03/31/24 10:53 BMI result Body Mass Index 27.0 Const General: no acute distress and well developed Nutritional Appearance: well nourished Orientation/consciousness: patient oriented x3 HEENT Head: Yes normocephalic and Yes atraumatic Eyes General: appearance normal, both eyes and all related structures Pupils: Equal, round and reactive pupils present EOM: EOMs intact bilaterally Resp Effort & Inspection: normal respiratory effort Auscultation: clear to auscultation bilaterally Cardio Rate: regular rate Rhythm: regular rhythm Heart sounds: S1 normal heart sound present, S2 normal heart sound present, no gallops, no murmurs and no rubs Skin Other: 1 cm erythematous asher at right upper arm which may be consistent w to a tick bite Neuro General: patient oriented x3 and gait normal Cranial nerves: Yes Equal, round and reactive pupils present Psych Affect: normal affect Assessment & Plan Assessment & Plan (1) Tick bite: Code(s): W57.XXXA - Bitten or stung by nonvenomous insect and other nonvenomous arthropods, initial encounter Plan: Likely tick bite and patient is uncertain how long it was attached. Will give him prophylactic dose of doxycycline and check Lyme titer If positive, patient understands he will wean a longer treatment. Follow-up with primary Orders: Orders Lyme IgG/IgM w/reflex to WB Today W57.XXXA - Bitten or stung by nonvenomous insect and other nonvenomous arthropods, initial encounter Medications: New doxycycline hyclate 200 mg (2 x 100 mg) PO ONCE 1 day 2 tabs 0RF Coding Level of Care Code Est Pt Level 3 (77523) Diagnoses Tick bite W57.XXXA
[2024-03-31 10:53] VITALS: BP 124/66; PULSE 56; TEMP 36.7; O2SAT 98; BMI 27.0
== END 2024-03-31 11:40 | disposition home or self-care (01) ==
PROVIDERS: PCP Nurse Practitioner Family; Visit Provider Family Medicine
DX: T63.481A Toxic effect of venom of other arthropod, accidental (unintentional), initial encounter (principal)
CPT/HCPCS: 99213

== ENCOUNTER 2024-03-31 11:19 | Outpatient (REF) | payer MEDICARE, MEDICAID, SELFPAY ==
[2024-04-04 05:41] LABS: Lyme Blot 0.93 index
[2024-04-04 10:05] LABS: Lyme Abs Screen EQUIVOCAL
[2024-04-05 20:23] LABS: 18 KD (IgG) Band NON-REACTIVE; 23 KD (IgG) Band REACTIVE; 23 KD (IgM) Band NON-REACTIVE; 28 KD (IgG) Band NON-REACTIVE; 30 KD (IgG) Band NON-REACTIVE; 39 KD (IgM) Band NON-REACTIVE; 39KD (IgG) Band NON-REACTIVE; 41 KD (IgM) Band NON-REACTIVE; 41KD (IgG) Band NON-REACTIVE; 45 KD (IgG) Band NON-REACTIVE; 58 KD (IgG) Band NON-REACTIVE; 66 KD (IgG) Band NON-REACTIVE; 93 KD (IgG) Band NON-REACTIVE; Lyme IgG Blot Interp NEGATIVE (NEGATIVE); Lyme IgM Blot Interp NEGATIVE (NEGATIVE)
== END 2024-03-31 11:20 | disposition home or self-care (01) ==
LOC: HO.HMGCLDS 11:19
PROVIDERS: PCP Nurse Practitioner Family; Visit Provider Family Medicine
DX: T14.8XXA Other injury of unspecified body region, initial encounter (principal); W57.XXXA Bitten or stung by nonvenomous insect and other nonvenomous arthropods, initial encounter; Y93.9 Activity, unspecified; Y92.9 Unspecified place or not applicable; Y99.9 Unspecified external cause status
CPT/HCPCS: 36415; 86617; 86618

== ENCOUNTER 2024-05-14 08:11 | Outpatient (AMB) | payer MEDICARE, MEDICAID, SELFPAY ==
[2024-05-14 08:26] VITALS: BP 128/84; PULSE 64; O2SAT 98; BMI 27.1
--- NOTE | 2024-05-14 08:26 | A.OFFPC_ITS ---
Vital Signs 05/14/24 08:26 Height 6 ft 2 in Weight 211 lb BMI 27.1 BP 128/84 Blood Pressure Location Lt brachial Position Sitting Pulse 64 Pulse Source Pulse Oximeter Pulse Oximetry (%) 98 Oxygen Delivery Method Room Air Intake Visit Reasons: pe Intake Note: Pt is here today for his annual physical. Allergies mold Allergy (Unknown, Verified 05/14/24 08:48) Unknown pollen Allergy (Unknown, Uncoded 05/14/24 08:48) Unknown Medication List - Last Reconciled 05/14/24 by HANNAH Dumont budesonide-formoterol 80-4.5 mcg/actuation (Symbicort) 2 puffs inhalation BID 30 days hydroxyzine pamoate 25 mg PO TID PRN paliperidone palmitate (Invega Sustenna) mg IM pentoxifylline ER 400 mg PO DAILY tadalafil 5 mg PO Q OTHER DAY 90 days Tobacco use date assessed: 05/14/24 Dental Screening Dental Screen Date: 05/14/24 Did you have a dental visit in the last 12 months?: No Did you have a dental problem in the last 6 months where you did not have access to dental care?: No Was dental information given to patient?: No HPI pe HPI Details Pt is here for a PE. Will order labs. Pt sees a psychiatrist and a therapist. He also follows up with urology. Pt has an area of macular erythema to his left breast region (tinea). Will send ketoconazole. 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 1. Little interest or pleasure in doing things: not at all 2. Feeling down, depressed, or hopeless: not at all 3. Trouble falling or staying asleep, or sleeping too much: not at all 4. Feeling tired or having little energy: not at all 5. Poor appetite or overeating: not at all 6. Feeling bad about yourself - or that you are a failure or have let yourself or your family down: not at all 7. Trouble concentrating on things, such as reading the newspaper or watching television: not at all 8. Moving or speaking so slowly that other people could have noticed. Or the opposite - being so fidgety or restless that you have been moving around a lot more than usual: not at all 9. Thoughts that you would be better off or of hurting yourself in some way: not at all Total score: 0 Depression Screening Interpretation: Negative Depression Screening Done: Yes 01590 - PHQ-9 Billing: Yes Source: Developed by Drs. Robert Briceño, Celestina Riley, Henrry Harmon and colleagues, with an educational gilbert from [employer]. Thrive Questionnaire Date Thrive assessed: 05/14/24 I am a: Patient What is your living situation today?: I have a steady place to live Within the past 12 months, did the food you bought not last and you didn't have the money to get more?: Never true Within the past 12 months, did you worry whether your food would run out before you got money to buy more?: Never true Do you have trouble paying for medicines?: No Do you have trouble getting transportation to medical appointments?: No Do you have trouble paying your heating and electricity bill?: No Do you have trouble taking care of your child, family member or friend?: No Do you have trouble with day-to-day activities such as bathing, preparing meals, shopping, managing finances, etc.?: No Are you currently unemployed and looking for a job?: No Are you interested in more education?: No Please select the resources that you would like help with: None Currently or been in a relationship where the following occur: No concerns reported THRIVE Score: 0 AUDIT C Alcohol Use Questionnaire (AUDIT-C) 1. How often do you have a drink containing alcohol?: Monthly or less 2. How many drinks containing alcohol do you have on a typical day when you are drinking?: 1 or 2 3. How often do you have six or more drinks on one occasion?: Less than monthly Total Score: 2 Score Reviewed/Action Taken: Yes REYNALDO-7 AMB Questionnaire REYNALDO-7 Date REYNALDO - 7 assessed: 05/14/24 Feeling nervous, anxious, or on edge: 0 = Not at all Not being able to stop or control worryin = Not at all Worrying too much about different things: 0 = Not at all Trouble relaxin = Not at all Being so restless that it is hard to sit still: 0 = Not at all Becoming easily annoyed or irritable: 0 = Not at all Feeling afraid as if something awful might happen: 0 = Not at all Total REYNALDO-7 score (0-4 normal; 5-9 mild; 10-14 moderate; 15-21 severe): 0 Source: Developed by Drs. Robert Briceño, Celestina Riley, Henrry Harmon and colleagues, with an educational gilbert from [employer]. REYNALDO-7 Assessment Billing REYNALDO-7 Assessment Tool: REYNALDO-7 Assessment 24791 Review of Systems Const Denies chills and Denies fever(s) Eyes Denies blurry vision ENT Denies vertigo, Denies dizziness and Denies sore throat Card Denies chest pain at rest, Denies chest pain with activity, Denies diaphoresis, Denies dyspnea and Denies dyspnea on exertion Resp Denies cough, Denies dyspnea, Denies dyspnea on exertion and Denies wheezing GI Denies abdominal pain, Denies melena, Denies hematochezia, Denies constipation, Denies diarrhea and Denies loose stools Denies hematuria Musc Denies numbness and Denies tingling Skin/Breast Denies lesions Neuro Denies vertigo, Denies dizziness, Denies numbness and Denies tingling Psych Denies anxiety, Denies depression, Denies homicidal ideation, Denies suicidal ideation and Denies other (substance abuse) Aller/Immun Denies wheezing Physical exam (Primary Care) Vital Signs: Last Vital Signs Pulse 64 05/14/24 08:26 BP 128/84 05/14/24 08:26 Pulse Ox 98 05/14/24 08:26 Oxygen Delivery Method Room Air 05/14/24 08:26 BMI result Body Mass Index 27.1 Tobacco/Smoking Status: Tobacco use Status Tobacco use date assessed 05/14/24 05/14/24 08:30 Patient Tobacco Use Status Never used Tobacco 05/14/24 08:30 e-Cigarette/Vaping Use Never Used 05/14/24 08:30 PHQ-9: PHQ-9 Score PHQ-9: Total score 0 05/14/24 08:31 Depression Screening Interpretation: Negative Thrive Assessment: Date of Thrive Assessment Date Thrive assessed 05/14/24 05/14/24 08:30 Currently or been in a relationship where the following occur: No concerns reported Const General: cooperative Nutritional Appearance: well nourished Orientation/consciousness: patient oriented x3 HENMT Head: Yes normal to inspection, Yes normocephalic and Yes atraumatic Ears: TM's normal bilaterally Eyes General: appearance normal, both eyes and all related structures Alignment and Position: alignment normal and position normal Neck Neck: Yes normal visual inspection, Yes no lymphadenopathy and Yes supple Resp Effort & Inspection: normal respiratory effort Auscultation: clear to auscultation bilaterally Cardio Rate: regular rate Rhythm: regular rhythm Heart sounds: S1 normal heart sound present, S2 normal heart sound present and no murmurs GI Palpation (GI): Soft to palpation and nontender Auscultation: normal bowel sounds Male General Exam: Yes normal external exam Penis: normal penis Scrotum: scrotum normal, testes descended bilaterally and no inguinal hernias Testes: no testicular mass Skin Other: left breast region with macular erythema (tinea). right posterior shoulder with ? keloid Neuro General: patient oriented x3, moves all extremities, no focal motor deficits and deep tendon reflexes 2+ bilaterally Romberg Test: Negative Psych Appearance: grossly normal Mental Status: mental status grossly normal Speech and movement: Normal speech and movement present Affect: normal affect Attitude: cooperative Thought process: Normal thought process present Thought content: Normal thought content present Insight: Good insight present (Psych) Judgement: Good judgement present (Psych) Assessment and Plan Assessment & Plan (1) Physical exam: Code(s): Z00.00 - Encounter for general adult medical examination without abnormal findings Plan: Labs ordered (2) Tinea: Code(s): B35.9 - Dermatophytosis, unspecified Plan: Ketoconazole sent Plan The patient agreed to the use of a biomedical engineering supervisor for this encounter. Scribed for HANNAH Gonzalez by Hafsa Acevedo biomedical engineering supervisor, on 05/14/2024 at 08:40 EST. Orders: Orders TSH reflex Free T4 Today Z00.00 - Encounter for general adult medical examination without abnormal findings UA CC w/rflx Micro + Cult Today Z00.00 - Encounter for general adult medical examination without abnormal findings Complete Blood Count Auto Diff Today Z00.00 - Encounter for general adult medical examination without abnormal findings Comprehensive [place]. Panel Fast Today Z00.00 - Encounter for general adult medical examination without abnormal findings Lipid Panel Today Z00.00 - Encounter for general adult medical examination without abnormal findings Medications: New ketoconazole 2% 1 appl topical BID 60 grams 0RF Coding Level of Care Code Est Pt Prev Care 18-39y(20520) Diagnoses Physical exam Z00.00 Tinea B35.9 Additional Codes REYNALDO-7 Assessment Billing - REYNALDO-7 Assessment Tool: REYNALDO-7 Assessment 05955 ([id number])
== END 2024-05-14 08:51 | disposition home or self-care (01) ==
PROVIDERS: PCP Nurse Practitioner Family; Visit Provider Nurse Practitioner Family
DX: Z00.00 Encounter for general adult medical examination without abnormal findings (principal); B35.9 Dermatophytosis, unspecified

== ENCOUNTER → 2024-05-14 08:11 | Outpatient (BNVA) | payer MEDICARE, MEDICAID, SELFPAY | PROVIDERS: PCP Nurse Practitioner Family; Visit Provider Nurse Practitioner Family | DX: Z00.01 Encounter for general adult medical examination with abnormal findings (principal); B35.9 Dermatophytosis, unspecified | CPT/HCPCS: 96127; 99395 ==

== ENCOUNTER 2024-11-01 10:03 | Outpatient (AMB) | payer MEDICARE, MEDICAID, SELFPAY ==
[2024-11-01 10:06] VITALS: BP 132/90; PULSE 56; O2SAT 96
--- NOTE | 2024-11-01 10:06 | AM.OFFWIN_ITS ---
Intake Vital Signs 11/01/24 10:06 Weight 210 lb BP 132/90 H Blood Pressure Location Lt brachial Position Sitting Pulse 56 Pulse Source Pulse Oximeter Pulse Oximetry (%) 96 Oxygen Delivery Method Room Air Intake Visit Reasons: EP ? fracture RT wrist Intake Note: Patient here for possible right wrist fracture after a fall yesterday while running a race. Patient Tobacco Use Status: Never used Tobacco Allergies mold Allergy (Unknown, Verified 11/01/24 10:13) Unknown pollen Allergy (Unknown, Uncoded 11/01/24 10:13) Unknown Do you need a note to return to daycare/school/sports/work: No HPI HPI Comments History of Present Illness Details History of Present Illness - The patient is a 34 year old male pres enting with acute right wrist pain - He sustained an injury yesterday to hi s right wrist after falling on an outstretched hand. Initially, there was minimal discomfort, and complete wrist mobility was preserved. - Following several hours of video gamin g, significant stiffness and swelling developed. The pain is most noted during lifting. - Movement in certain directions and fin huan wiggling does not incite pain. There is no reported hand or elbow discomfort. Physical Exam General: Cooperative, healthy appearing, comfortable, no acute distress and well developed Orientation: Patient oriented x3 Limitations: No limitations Head: Normal to inspection Ears: Hearing grossly normal bilaterally Nose: Normal External nose present Face and sinus: Normal facial exam Eyes: Appearance normal, both eyes and all related structures Neck: Normal visual inspection and Yes full ROM Respiratory: Normal respiratory effort and able to speak in complete sentences. Skin: No rashes or lesions noted Neuro: Patient oriented x3 Extremities: right elbow full rom, no ttp, normal appearing. Right wrist slightly swollen, full ROM, no snuffbox tenderness, no ecchymosis. Right hand and fingers, no TTP, full ROM fingers and NVI. [facility] Medical History Anxiety OCD (obsessive compulsive disorder) Surgical History No pertinent past surgical history Family History Father Recovering alcoholic Mental illness in member of household Mother Mental illness in member of household Recovering alcoholic Social History Housing: Apartment Alcohol intake: current Alcohol intake frequency: holidays/special occasions only Patient Tobacco Use Status: Never used Tobacco e-Cigarette/Vaping Use: Never Used Second Hand Smoke Exposure: Yes Substance Use Type: Marijuana service: No Current occupational status: disabled 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 We have ordered a wrist x-ray to assess potential scaphoid involvement due to its typical vulnerability in such injuries. My read of XR was no acute fracture or dislocation, pending final Rads read. For symptom management and stabilization, I'm recommending a supportive wrist splint which we have given pt today (thumb spica velcro). Education on proper wrist care and vigilance for potential complications was provided, with advice to follow up with PCP if no gradual improvement in pain. Rest, ice and Aleve recommended with regular daily ROM exercises and wean off splint in 2 weeks. Patient was informed and verbally consented to the use of an ambient scribe for clinic note documentation during this visit. (2) Fall: Code(s): W19.XXXA - Unspecified fall, initial encounter Qualifiers: Encounter type: initial encounter Qualified Code(s): W19.XXXA - Unspecified fall, initial encounter Plan: as above (3) Right wrist sprain: Code(s): S63.501A - Unspecified sprain of right wrist, initial encounter Qualifiers: Encounter type: initial encounter Qualified Code(s): S63.501A - Unspecified sprain of right wrist, initial encounter Plan: as above Orders: Orders XR wrist RT w scaphoid Today M25.531 - Pain in right wrist, W19.XXXA - Unspecified fall, initial encounter Coding Level of Care Code Est Pt Level 4 (88139) Diagnoses Right wrist pain M25.531 Fall, initial encounter W19.XXXA Encounter type: initial encounter Sprain of right wrist, initial encounter S63.501A Encounter type: initial encounter
== END 2024-11-01 11:09 | disposition home or self-care (01) ==
PROVIDERS: PCP Nurse Practitioner Family; Visit Provider Physician Assistant
DX: M25.531 Pain in right wrist (principal); W19.XXXA Unspecified fall, initial encounter; S63.501A Unspecified sprain of right wrist, initial encounter

== ENCOUNTER 2024-11-01 10:03 | Outpatient (REF) | payer MEDICARE, MEDICAID, SELFPAY ==
--- NOTE | ~2024-11-01 | XR_ITS ---
EXAMINATION: XR WRIST NAVICULAR RIGHT HISTORY: M25.531 - Pain in right wrist COMPARISON: There are no prior studies available for comparison. FINDINGS: Four views of the right wrist including a scaphoid view are submitted. Osseous mineralization is normal. There is no fracture or dislocation. The joint spaces are preserved. The soft tissues are unremarkable. XR/XR wrist RT w scaphoid IMPRESSION: Unremarkable examination of the right wrist. Electronically signed by: Robert Urbina MD 11/01/2024 11:16 AM EDT
== END 2024-11-01 10:04 | disposition home or self-care (01) ==
LOC: HO.HMGCX 10:03
PROVIDERS: PCP Nurse Practitioner Family; Visit Provider Physician Assistant
DX: S63.501A Unspecified sprain of right wrist, initial encounter (principal); W19.XXXA Unspecified fall, initial encounter
CPT/HCPCS: 73110; 99212

== ENCOUNTER → 2024-11-01 10:23 | Outpatient (BNV) | payer MEDICARE, MEDICAID, SELFPAY | PROVIDERS: PCP Nurse Practitioner Family; Visit Provider Radiology Diagnostic Radiology | DX: M25.531 Pain in right wrist (principal) | CPT/HCPCS: 73110 ==

== ENCOUNTER 2024-11-15 10:03 | Outpatient (AMB) | payer MEDICARE, MEDICAID, SELFPAY ==
[2024-11-15 10:10] VITALS: BP 132/80; PULSE 86; O2SAT 96; BMI 26.7
--- NOTE | 2024-11-15 10:10 | A.OFFPC_ITS ---
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 Required: No Accompanied by: Self / Same As Patient Allergies mold Allergy (Unknown, Verified 11/15/24 10:10) Unknown pollen Allergy (Unknown, Uncoded 11/01/24 10:13) Unknown Medication List - Last Reconciled 11/15/24 by SUSANA Dumont- albuterol sulfate 90 mcg/actuation (Ventolin HFA) 2 puffs inhalation Q6H PRN budesonide-formoterol 80-4.5 mcg/actuation (Symbicort) 2 puffs inhalation BID 30 days hydroxyzine pamoate 25 mg PO TID PRN ketoconazole 2% 1 appl topical BID paliperidone palmitate (Invega Sustenna) mg IM pentoxifylline ER 400 mg PO DAILY tadalafil 5 mg PO Q OTHER DAY 90 days Tobacco use date assessed: 11/15/24 Dental Screening Dental Screen Date: 11/15/24 Did you have a dental visit in the last 12 months?: Yes Did you have a dental problem in the last 6 months where you did not have access to dental care?: No Was dental information given to patient?: Patient has dentist HPI 6 months f/up HPI Details Chief Complaint Patient reports increased wheezing. History of Present Illness The patient is a 34-year-old male presenting with wheezing and respiratory concerns. He has a documented history of asthma from childhood and currently reports an increase in respiratory symptoms. During recent exertion in a running race, he noted significant wheezing and shortness of breath. This may relate to physical deconditioning or his ongoing cannabis use that began at the age of 19. Despite no daily wheezing, episodes have been more frequent, but there is no visual shortness of breath, and his oxygen saturation remains stable. Improvement in symptoms follows a prior fall, as documented in previous medical notes. Social History - Daily marijuana smoking since the age of 19 - Increased video game activity Health Maintenance - Encouraged to obtain lab work soon - Plan to conduct Pulmonary Function Hazel ts (PFT) - Discussion to obtain a CT scan - Prescribed a short-acting beta-agonist inhaler Review of Systems - Respiratory: Reports episodes of wheez ing. denies any CP, fevers, chills Physical Exam General: Cooperative, healthy appearing, comfortable, no acute distress and well developed Orientation: Patient oriented x3 Limitations: No limitations Head: Normal to inspection Ears: Hearing grossly normal bilaterally Nose: Normal external nose present Face and sinus: Normal facial exam Eyes: Appearance normal, both eyes and all related structures Neck: Normal visual inspection and Yes full ROM Respiratory: Slight wheezing noted on exam today (scattered). Normal respiratory effort and able to speak in complete sentences. Otherwise, Clear to auscultation bilaterally Cardiovascular: Regular rate and rhythm. Normal S1 and S2 GI: Normal to inspection. Soft to palpation and nontender Skin: No rashes or lesions noted Neuro: Patient oriented x3 Extremities: Normal to inspection Results Plan I plan to evaluate the patient's respiratory condition with Pulmonary Function Tests and a CT scan, given his history of asthma and recent symptoms. A short- acting beta-agonist inhaler has been prescribed, with instructions on minimizing use to reduce side effects. I advised monitoring for any further exacerbation of symptoms and obtaining routine laboratory tests. Cannabis use was discussed, and reducing this was recommended. There will be a follow-up to assess treatment response. Discussion Notes I discussed with the patient likely causes of his increased wheezing and the need to reassess his asthma management. Diagnostic studies including PFTs and a CT scan were advised to gain more insight into his current respiratory status. I explained the prescription of a short-acting beta-agonist, addressing its effects including potential cardiac stimulation with overuse. Encouragement was given to reduce cannabis use, highlighting its possible role in respiratory exacerbation. Plans for lab work and a follow-up visit were reviewed. Patient Instructions - Use the prescribed inhaler as instruct ed, be cautious of overuse. - Schedule and complete the recommended lab tests and PFTs. - Adhere to the CT scan schedule once it is set. - Consider reducing cannabis use to help improve respiratory symptoms. - Return for a follow-up to assess respo nse to current management strategies (may use portal). 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 1. Little interest or pleasure in doing things: not at all 2. Feeling down, depressed, or hopeless: not at all 3. Trouble falling or staying asleep, or sleeping too much: not at all 4. Feeling tired or having little energy: not at all 5. Poor appetite or overeating: not at all 6. Feeling bad about yourself - or that you are a failure or have let yourself or your family down: not at all 7. Trouble concentrating on things, such as reading the newspaper or watching television: not at all 8. Moving or speaking so slowly that other people could have noticed. Or the opposite - being so fidgety or restless that you have been moving around a lot more than usual: not at all 9. Thoughts that you would be better off or of hurting yourself in some way: not at all Total score: 0 Depression Screening Interpretation: Negative Depression Screening Done: Yes 14177 - PHQ-9 Billing: Yes Source: Developed by Drs. Robert Briceño, Celestina Riley, Henrry Harmon and colleagues, with an educational gilbert from [employer]. Thrive Questionnaire Date Thrive assessed: 11/15/24 I am a: Patient What is your living situation today?: I have a steady place to live Within the past 12 months, did the food you bought not last and you didn't have the money to get more?: Never true Within the past 12 months, did you worry whether your food would run out before you got money to buy more?: Never true Do you have trouble paying for medicines?: No Do you have trouble getting transportation to medical appointments?: No Do you have trouble paying your heating and electricity bill?: No Do you have trouble taking care of your child, family member or friend?: No Do you have trouble with day-to-day activities such as bathing, preparing meals, shopping, managing finances, etc.?: No Are you currently unemployed and looking for a job?: No Are you interested in more education?: No Please select the resources that you would like help with: None Currently or been in a relationship where the following occur: No concerns reported THRIVE Score: 0 AUDIT C Alcohol Use Questionnaire (AUDIT-C) 1. How often do you have a drink containing alcohol?: Monthly or less 2. How many drinks containing alcohol do you have on a typical day when you are drinking?: 1 or 2 3. How often do you have six or more drinks on one occasion?: Never Total Score: 1 Score Reviewed/Action Taken: Yes REYNALDO-7 AMB Questionnaire REYNALDO-7 Date REYNALDO - 7 assessed: 11/15/24 Feeling nervous, anxious, or on edge: 0 = Not at all Not being able to stop or control worryin = Several days Worrying too much about different things: 1 = Several days Trouble relaxin = Several days Being so restless that it is hard to sit still: 0 = Not at all Becoming easily annoyed or irritable: 1 = Several days Feeling afraid as if something awful might happen: 0 = Not at all Total REYNALDO-7 score (0-4 normal; 5-9 mild; 10-14 moderate; 15-21 severe): 4 Source: Developed by Drs. Robert Briceño, Celestina Riley, Henrry Harmon and colleagues, with an educational gilbert from [employer]. REYNALDO-7 Assessment Billing REYNALDO-7 Assessment Tool: REYNALDO-7 Assessment 22015 Physical exam (Primary Care) Vital Signs: Last Vital Signs Pulse 86 11/15/24 10:10 BP 132/80 11/15/24 10:10 Pulse Ox 96 11/15/24 10:10 BMI result Body Mass Index 26.7 Tobacco/Smoking Status: Tobacco use Status Tobacco use date assessed 11/15/24 11/15/24 10:12 Patient Tobacco Use Status Never used Tobacco 11/15/24 10:12 e-Cigarette/Vaping Use Never Used 11/15/24 10:12 PHQ-9: PHQ-9 Score PHQ-9: Total score 0 11/15/24 10:12 Depression Screening Interpretation: Negative Thrive Assessment: Date of Thrive Assessment Date Thrive assessed 11/15/24 11/15/24 10:12 Currently or been in a relationship where the following occur: No concerns reported Coding Level of Care Code Est Pt Level 3 (54428) Diagnoses Asthma J45.909 Additional Codes REYNALDO-7 Assessment Billing - REYNALDO-7 Assessment Tool: REYNALDO-7 Assessment 56837 ([id number]) PHQ-9 - 80830 - PHQ-9 Billing: Yes ([id number]) Assessment & Plan Assessment & Plan (1) Asthma: Code(s): J45.909 - Unspecified asthma, uncomplicated Category: Medical Plan . Orders: Orders Resp Allergy Profile Region I Today J45.909 - Unspecified asthma, uncomplicated CT chest wo IV con Today J45.909 - Unspecified asthma, uncomplicated PFT pulmonary function test Today J45.909 - Unspecified asthma, uncomplicated Immunoglobulin E Today J45.909 - Unspecified asthma, uncomplicated Medications: New albuterol sulfate 90 mcg/actuation (Ventolin HFA) 2 puffs inhalation Q6H PRN 8.5 grams 0RF shortness of breath or wheezing
== END 2024-11-15 12:01 | disposition home or self-care (01) ==
LOC: HO.HMCC 10:04
PROVIDERS: PCP Nurse Practitioner Family; Visit Provider Nurse Practitioner Family
DX: J45.909 Unspecified asthma, uncomplicated (principal)

== ENCOUNTER → 2024-11-15 10:03 | Outpatient (BNVA) | payer MEDICARE, MEDICAID, SELFPAY | PROVIDERS: PCP Nurse Practitioner Family; Visit Provider Nurse Practitioner Family | DX: J45.909 Unspecified asthma, uncomplicated (principal) | CPT/HCPCS: 96127; 99212 ==

== ENCOUNTER 2024-11-17 09:29 | Outpatient (REF) | payer MEDICARE, MEDICAID, SELFPAY ==
[2024-11-28 10:48] LABS: Class Alternaria alternata 0/1; Class Aspergillus fumigatus 0; Class Bermuda Grass 0; Class Birch 0; Class Cat Dander 0; Class Cladosporium herbarum 0; Class Cockroach 0; Class Common Ragweed 0; Class Cottonwood 0; Class Derm. pterony 0; Class Dermatophagoides farinae 0; Class Dog Dander 0; Class Elm 0; Class Maple Box Elder 0; Class Mountain Cedar 0; Class Mouse Urine Protein 0; Class Mugwort 0; Class Oak 0; Class Penicillium crysogenum 0; Class Rough Pigweed 0; Class Sheep Sorrel 0; Class Sycamore 0; Class Timothy Grass 0; Class Walnut Tree 0; Class White Ash 0; Class White Mulberry 0; D001 IgE D pteronyssinus <0.10 kU/L; D002 - IgE D farinae <0.10 kU/L; E001 - IgE Cat Dander <0.10 kU/L; E005 - IgE Dog Dander <0.10 kU/L; E072-IgE Mouse Urine <0.10 kU/L; G002 IgE Bermuda Grass <0.10 kU/L; G006 - IgE Timothy Grass <0.10 kU/L; I006-IgE Cockroach, German <0.10 kU/L; Immunoglobulin E 11 kU/L (<OR=114); M001 IgE Penicillium chrysogen <0.10 kU/L; M002 - IgE Cladosporium herbar <0.10 kU/L; M003 - IgE Aspergillus fumigat <0.10 kU/L; M006 - IgE Alternaria alternat 0.21 kU/L; T001 IgE Maple/Box Elder <0.10 kU/L; T003 IgE Common Silver Birch <0.10 kU/L; T006 - IgE Cedar, Mountain <0.10 kU/L; T007 - IgE Oak, White <0.10 kU/L; T008 IgE Elm, American <0.10 kU/L; T010 - IgE Walnut <0.10 kU/L; T011 - IgE Maple Leaf Sycamore <0.10 kU/L; T014 - IgE Cottonwood <0.10 kU/L; T015 - IgE Ash, White <0.10 kU/L; T070 - IgE White Mulberry <0.10 kU/L; W001 - IgE Ragweed, Short <0.10 kU/L; W006 - IgE Mugwort <0.10 kU/L; W014 IgE Pigweed, Common <0.10 kU/L; W018 IgE Sheep Sorrel <0.10 kU/L
== END 2024-11-17 09:30 | disposition home or self-care (01) ==
LOC: HO.HMGCLDS 09:29
PROVIDERS: PCP Nurse Practitioner Family; Visit Provider Nurse Practitioner Family
DX: J45.909 Unspecified asthma, uncomplicated (principal); R06.02 Shortness of breath; Z91.09 Other allergy status, other than to drugs and biological substances
CPT/HCPCS: 36415; 82785; 86003

== ENCOUNTER 2024-11-27 13:30 | Outpatient (AMB) | payer MEDICARE, MEDICAID, SELFPAY ==
--- NOTE | 2024-11-27 13:31 | A.OFFVIS_ITS ---
Intake Visit Reasons: 1y follow up Intake Note: Patient is Present for 1y Follow Up Urology Medication: Tadalafil, Pentoxifyline Antibiotic Allergies: None Blood Thinners: None Line Servicer Required: No Allergies mold Allergy (Unknown, Verified 11/27/24 13:32) Unknown pollen Allergy (Unknown, Uncoded 11/27/24 13:32) Unknown HPI Comments Details: Rogelio is a pleasant male. He is a patient of Dr. Mccallum. He is seen for the following urologic reasons - Peyronie's disease - erectile dysfunction Peyronie's stable Does have persistent erectile related issues Secondary to psychiatric medications Unable to reach climax Background cannabis use disorder and point addiction Discussed blunted dopaminergic response Suggest reducing cannabis use Trial oxytocin Would like to continue with low-dose tadalafil and daily pentoxifylline 12m f/u Peyronie's disease with associated erectile dysfunction Chronic sleep disruption Heavy marijuana use - 03/05 has ceased Discussion today regarding lack of restorative sleep Recommendation to decrease marijuana use and improve sleep hygiene Prescription provided for antioxidant therapy Written information provided regarding Peyronie's disease No evidence of calcification PFSH Medical History Anxiety OCD (obsessive compulsive disorder) Surgical History No pertinent past surgical history Family History Father Recovering alcoholic Mental illness in member of household Mother Mental illness in member of household Recovering alcoholic Social History Housing: Apartment Alcohol intake: current Alcohol intake frequency: holidays/special occasions o nly Patient Tobacco Use Status: Never used Tobacco e-Cigarette/Vaping Use: Never Used Second Hand Smoke Exposure: Yes Substance Use Type: Marijuana service: No Current occupational status: disabled 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 Cognitive needs: No Hearing needs: No Vision needs: No Review of Systems Const Denies chills and Denies fever(s) Card Reports no additional complaints and Denies syncope Resp Denies cough GI Denies abdominal pain and Denies heartburn Reports as per HPI and Denies change in libido Neuro Denies syncope Psych Denies change in libido Endo Denies change in libido Physical Exam Const General: cooperative, healthy appearing, comfortable and no acute distress Orientation/consciousness: patient oriented x3 HEENT Face and sinus: Yes normal facial exam Mouth: moist mucous membranes Neck Neck: Yes normal visual inspection, Yes full ROM and Yes trachea midline Chest Chest palpation & inspection: normal inspection of the chest Resp Effort & Inspection: normal respiratory effort, able to speak in complete sentences and no respiratory distress GI Inspection: Yes normal to inspection Back/Spine/Pelvis Cervical Spine: normal cervical lordosis Thoracic/Lumbar Spine: thoracic and lumbar spine normal to inspection Skin General skin exam: no rashes or lesions noted Neuro General: patient oriented x3, gait normal, tone normal and moves all extremities Extrem General: Yes normal to inspection and Yes capillary refill normal Assessment & Plan Assessment & Plan (1) Peyronie disease: Code(s): N48.6 - Induration penis plastica Category: Medical (2) Erectile dysfunction: Code(s): N52.9 - Male erectile dysfunction, unspecified Category: Medical (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 While every effort has been made to ensure accuracy ultrasound technologist sonographer errors may have been included. Imaging studies, laboratory and physical exam results were discussed and reviewed in detail. No major barriers to patient understanding were identified. An opportunity to ask questions regarding the treatment plan was provided. All questions were answered. The patient expressed understanding and agreement with the above treatment plan. The patient is aware they should contact our office by phone for worsening of their current condition or the appearance of new urologic symptoms. Compliance is encouraged with any medications and followup testing that is ordered. It is a privilege to participate in the urologic care of your patient. If you have any questions or concerns regarding treatment for the above conditions, or other urologic issues, please do not hesitate to contact me. The office telephone contact is [phone]. 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
== END 2024-11-27 13:59 | disposition home or self-care (01) ==
LOC: HO.HUSH 13:30
PROVIDERS: PCP Nurse Practitioner Family; Visit Provider Urology
DX: N48.6 Induration penis plastica (principal); N52.9 Male erectile dysfunction, unspecified; F52.32 Male orgasmic disorder
CPT/HCPCS: 99214

== ENCOUNTER → 2024-11-27 13:30 | Outpatient (BNVA) | payer MEDICARE, MEDICAID, SELFPAY | PROVIDERS: PCP Nurse Practitioner Family; Visit Provider Urology | DX: N48.6 Induration penis plastica (principal); N52.9 Male erectile dysfunction, unspecified; F52.32 Male orgasmic disorder | CPT/HCPCS: 99212 ==

== ENCOUNTER 2024-12-21 16:19 | Outpatient (REF) | payer MEDICARE, MEDICAID, SELFPAY ==
--- NOTE | ~2024-12-21 | CT_ITS ---
CLINICAL HISTORY: J45.909 - Unspecified asthma, uncomplicated CT chest without contrast Comparison: None Findings: The heart is normal size. The visualized thyroid and mediastinum are unremarkable. No consolidation or effusion. 2 mm nodule incidentally noted within the right middle lobe. No obvious focus of air trapping. The upper abdomen is unremarkable. The bones are intact. IMPRESSION: 1. No acute cardiopulmonary disease. This document has been electronically signed by: Silke Forman MD on 12/24/2024 16:00:58
== END 2024-12-21 16:20 | disposition home or self-care (01) ==
LOC: HO.CT 16:19
PROVIDERS: PCP Nurse Practitioner Family; Visit Provider Nurse Practitioner Family
DX: J45.909 Unspecified asthma, uncomplicated (principal)
CPT/HCPCS: 71250

== ENCOUNTER → 2024-12-21 16:22 | Outpatient (BNV) | payer MEDICARE, MEDICAID, SELFPAY | PROVIDERS: PCP Nurse Practitioner Family; Visit Provider Radiology Diagnostic Radiology | DX: J45.909 Unspecified asthma, uncomplicated (principal) | CPT/HCPCS: 71250 ==

== ENCOUNTER 2024-12-28 15:58 | Outpatient (REF) | payer MEDICARE, MEDICAID, SELFPAY ==
--- NOTE | 2024-12-28 16:03 | PFT_ITS ---
Spirometry [] Lung Volumes [] Diffusion Capacity [] Methacholine Challenge [] Flow Volume Loops [] MVV [] MIP/MEP(Max inspiratory pressure/Max expiratory pressure) [] 6 Minute Walk Test [] ABG [] Interpretation [] MTDD
[2024-12-28 16:37] VITALS: PULSE 64; O2SAT 98
== END 2024-12-28 15:59 | disposition home or self-care (01) ==
LOC: HO.RESP 15:58
PROVIDERS: PCP Nurse Practitioner Family; Visit Provider Nurse Practitioner Family
DX: J45.909 Unspecified asthma, uncomplicated (principal)
CPT/HCPCS: 94010; 94640; 94727; 94729

== ENCOUNTER → 2024-12-28 16:03 | Outpatient (BNV) | payer MEDICARE, MEDICAID, SELFPAY | PROVIDERS: PCP Nurse Practitioner Family; Visit Provider Internal Medicine Pulmonary Disease | DX: R09.89 Other specified symptoms and signs involving the circulatory and respiratory systems (principal) | CPT/HCPCS: 94060; 94727; 94729 ==

== ENCOUNTER 2025-03-16 08:08 | Outpatient (REF) | payer MEDICARE, MEDICAID, SELFPAY ==
[2025-03-16 08:38] LABS: MANUAL DIFF FLAG NO
[2025-03-16 09:23] LABS: Hematocrit 43.5 % (42.0-52.0); Hemoglobin 15.9 g/dl (14.0-18.0); Imm Gran Abs Auto 0.01 X10*3/uL (0.00-0.03); Imm Gran Pct Auto 0.2 % (0.0-0.4); Lymphocytes Absolute Auto 1.3 X10*3/uL (1.2-4.9); Mean Corpuscular HGB Conc 36.6 g/dl (31.0-36.0); Mean Corpuscular Hemoglobin 29.7 pg (27.0-33.0); Mean Corpuscular Volume 81.2 fL (80.0-98.0); NRBC Abs Auto 0.000 X10*3/uL (0.0-0.012); NRBC Pct Auto 0.0 /100WBC (0.0-0.2); Platelet Count 164 X10*3/uL (160-400); Red Blood Count 5.36 X10*6/uL (4.60-5.80); White Blood Count 4.5 X10*3/uL (4.8-10.8)
[2025-03-16 10:03] LABS: Appearance Urine Clear; Glucose Urine UA Negative (Negative); PH 6.5 (5.0-9.0); Specific Gravity - Urine 1.010 (1.005-1.025)
[2025-03-16 10:03] LABS: Hemoglobin A1C 132.3925 umol/L; Total Hemoglobin (HGBA1C) 4069.7896 umol/L
[2025-03-16 10:11] LABS: Alanine Aminotransferase 19 U/L (0-40); Albumin Level 4.7 g/dL (3.5-5.0); Alkaline Phosphatase 73 U/L (39-117); Anion Gap 12 (12-20); Aspartate Amino Transferase 19 U/L (5-37); Blood Urea Nitrogen 12 mg/dL (9-16); Calcium 8.9 mg/dL (8.4-10.2); Carbon Dioxide 23 mmol/L (22-29); Chloride 111 mmol/L (96-108); Cholesterol 136 mg/dL (<200); Estimated Glomerular Filt Rate > 60; HDL Cholesterol 38 mg/dL (>40); Potassium 3.7 mmol/L (3.3-5.1); Sodium 142 mmol/L (135-145); Total Protein 6.9 g/dL (6.5-8.0); Triglycerides 68 mg/dL (<150)
[2025-03-16 10:15] LABS: UPreg QC Valid YES
== END 2025-03-16 08:09 | disposition home or self-care (01) ==
LOC: HO.LAB 08:08
PROVIDERS: PCP Nurse Practitioner Family; Visit Provider Nurse Practitioner Psychiatric/Mental Health
DX: Z13.1 Encounter for screening for diabetes mellitus (principal); Z79.899 Other long term (current) drug therapy
CPT/HCPCS: 36415; 80053; 80061; 81003; 81025; 83036; 85025

== ENCOUNTER 2025-05-23 09:57 | Outpatient (AMB) | payer MEDICARE, MEDICAID, SELFPAY ==
[2025-05-23 10:01] VITALS: BP 130/80; PULSE 88; O2SAT 96; BMI 25.7
--- NOTE | 2025-05-23 10:01 | MHC.PC.OV ---
Vital Signs 05/23/25 10:01 Height 6 ft 2 in Weight 200 lb BMI 25.7 BP 130/80 Blood Pressure Location Lt brachial Position Sitting Pulse 88 Pulse Source Pulse Oximeter Pulse Oximetry (%) 96 Oxygen Delivery Method Room Air Intake Visit Reasons: PE [employer] Supervisor Required: No Accompanied by: Self / Same As Patient Allergies mold Allergy (Unknown, Verified 05/23/25 10:16) Unknown pollen Allergy (Unknown, Uncoded 05/23/25 10:16) Unknown Medication List - Last Reconciled 05/23/25 by SUSANA Dumont- albuterol sulfate 90 mcg/actuation (Ventolin HFA) 2 puffs inhalation Q6H PRN budesonide-formoterol 80-4.5 mcg/actuation (Symbicort) 2 puffs inhalation BID 30 days hydroxyzine pamoate 25 mg PO TID PRN paliperidone palmitate (Invega Sustenna) mg IM pentoxifylline ER 400 mg PO DAILY 90 days tadalafil 5 mg PO Q OTHER DAY 90 days Tobacco use date assessed: 05/23/25 Dental Screening Dental Screen Date: 05/23/25 Did you have a dental visit in the last 12 months?: Yes Did you have a dental problem in the last 6 months where you did not have access to dental care?: No Was dental information given to patient?: Patient has dentist HPI PE HPI Details Chief Complaint The patient presents for a routine physical examination and reports a blocked right ear. History of Present Illness The patient is a 34-year-old male presenting with a routine physical examination. He denies experiencing any chest pain, dyspnea, abdominal pain, hematochezia, constipation, diarrhea, suicidal ideation, or homicidal ideation. The patient reports having a blocked right ear. Upon examination, significant cerumen was noted in the right ear canal, obstructing the view of the tympanic membrane. After performing an ear lavage, the tympanic membrane was easily visualized. Social History Health Maintenance Review of Systems - General: Denies chest pain, dyspnea, abdominal pain, hematochezia, constipation, diarrhea, suicidal ideation, homicidal ideation - Ear, Nose, Throat: Reports blocked right ear Physical Exam General: Cooperative, healthy appearing, comfortable, no acute distress and well developed Orientation: Patient oriented x3 Limitations: No limitations Head: Normal to inspection Ears: Hearing grossly normal in the left ear, significant cerumen in the right ear canal, unable to see the TM initially, but TM was easily seen after ear lavage Nose: Normal external nose present Face and sinus: Normal facial exam Eyes: Appearance normal, both eyes and all related structures Neck: Normal visual inspection and Yes full ROM Respiratory: Normal respiratory effort and able to speak in complete sentences. Clear to auscultation bilaterally Cardiovascular: Regular rate and rhythm. Normal S1 and S2 GI: Normal to inspection. Soft to palpation and nontender Skin: No rashes or lesions noted Neuro: Patient oriented x3 Extremities: Normal to inspection Results Plan 1. Cerumen Impaction The patient presented with a blocked right ear due to cerumen impaction. An ear lavage was performed, which successfully cleared the cerumen and allowed visualization of the tympanic membrane. 2. PE : labs ordered Discussion Notes Patient Instructions [facility] Medical History Anxiety OCD (obsessive compulsive disorder) Surgical History No pertinent past surgical history Family History Father Recovering alcoholic Mental illness in member of household Mother Mental illness in member of household Recovering alcoholic Social History Housing: Apartment Alcohol intake: current Alcohol intake frequency: holidays/special occasions only Patient Tobacco Use Status: Never used Tobacco e-Cigarette/Vaping Use: Never Used Second Hand Smoke Exposure: Yes Substance Use Type: Marijuana service: No Current occupational status: disabled 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 1. Little interest or pleasure in doing things: not at all 2. Feeling down, depressed, or hopeless: not at all 3. Trouble falling or staying asleep, or sleeping too much: not at all 4. Feeling tired or having little energy: not at all 5. Poor appetite or overeating: not at all 6. Feeling bad about yourself - or that you are a failure or have let yourself or your family down: not at all 7. Trouble concentrating on things, such as reading the newspaper or watching television: not at all 8. Moving or speaking so slowly that other people could have noticed. Or the opposite - being so fidgety or restless that you have been moving around a lot more than usual: not at all 9. Thoughts that you would be better off or of hurting yourself in some way: not at all Total score: 0 Depression Screening Interpretation: Negative Depression Screening Done: Yes 49950 - PHQ-9 Billing: Yes Source: Developed by Drs. Robert Brcieño, Celestina Riley, Henrry Harmon and colleagues, with an educational gilbert from [employer]. Thrive Questionnaire Date Thrive assessed: 11/15/24 I am a: Patient What is your living situation today?: I have a steady place to live Within the past 12 months, did the food you bought not last and you didn't have the money to get more?: Never true Within the past 12 months, did you worry whether your food would run out before you got money to buy more?: Never true Do you have trouble paying for medicines?: No Do you have trouble getting transportation to medical appointments?: No Do you have trouble paying your heating and electricity bill?: No Do you have trouble taking care of your child, family member or friend?: No Do you have trouble with day-to-day activities such as bathing, preparing meals, shopping, managing finances, etc.?: No Are you currently unemployed and looking for a job?: No Are you interested in more education?: No Please select the resources that you would like help with: None Currently or been in a relationship where the following occur: No concerns reported THRIVE Score: 0 REYNALDO-7 AMB Questionnaire REYNALDO-7 Date REYNALDO - 7 assessed: 05/23/25 Feeling nervous, anxious, or on edge: 0 = Not at all Not being able to stop or control worryin = Several days Worrying too much about different things: 1 = Several days Trouble relaxin = Several days Being so restless that it is hard to sit still: 0 = Not at all Becoming easily annoyed or irritable: 1 = Several days Feeling afraid as if something awful might happen: 0 = Not at all Total REYNALDO-7 score (0-4 normal; 5-9 mild; 10-14 moderate; 15-21 severe): 4 Source: Developed by Drs. Robert Briceño, Celestina Riley, Henrry Harmon and colleagues, with an educational gilbert from [employer]. Physical exam (Primary Care) Vital Signs: Last Vital Signs Pulse 88 05/23/25 10:01 BP 130/80 05/23/25 10:01 Pulse Ox 96 05/23/25 10:01 Oxygen Delivery Method Room Air 05/23/25 10:01 BMI result Body Mass Index 25.7 Tobacco/Smoking Status: Tobacco use Status Tobacco use date assessed 05/23/25 05/23/25 10:10 Patient Tobacco Use Status Never used Tobacco 05/23/25 10:10 e-Cigarette/Vaping Use Never Used 05/23/25 10:10 PHQ-9: PHQ-9 Score PHQ-9: Total score 0 05/23/25 10:10 Depression Screening Interpretation: Negative Thrive Assessment: Date of Thrive Assessment Date Thrive assessed 11/15/24 05/23/25 10:10 Currently or been in a relationship where the following occur: No concerns reported Office Procedures Cerumen Removal From which ear canal was the cerumen removed: right Removal: irrigation Notes: patient tolerated procedure well, no complications and ear canal clear [id number]-[id number] Irrigation/Lavage Coding Level of Care Code Est Pt Level 3 (26182) Est Pt Prev Care 18-39y(42189) Diagnoses Physical exam Z00.00 Impacted cerumen of right ear H61.21 CPT Codes Office Procedure - CPT: 16438-Boi Irrigation/Lavage ([id number]) Additional Codes PHQ-9 - 96393 - PHQ-9 Billing: Yes ([id number]) Assessment & Plan Assessment & Plan (1) Physical exam: Code(s): Z00.00 - Encounter for general adult medical examination without abnormal findings Category: Medical (2) Impacted cerumen of right ear: Code(s): H61.21 - Impacted cerumen, right ear Category: Medical Plan . Orders: Orders Complete Blood Count Auto Diff Today Z00.00 - Encounter for general adult medical examination without abnormal findings TSH reflex Free T4 Today Z00.00 - Encounter for general adult medical examination without abnormal findings Lipid Panel Today Z00.00 - Encounter for general adult medical examination without abnormal findings Comprehensive [place]. Panel Fast Today Z00.00 - Encounter for general adult medical examination without abnormal findings UA CC w/rflx Micro + Cult Today Z00.00 - Encounter for general adult medical examination without abnormal findings
== END 2025-05-23 11:01 | disposition home or self-care (01) ==
LOC: HO.HMCC 09:58
PROVIDERS: PCP Nurse Practitioner Family; Visit Provider Nurse Practitioner Family
DX: Z00.00 Encounter for general adult medical examination without abnormal findings (principal); H61.21 Impacted cerumen, right ear

== ENCOUNTER → 2025-05-23 09:57 | Outpatient (BNVA) | payer MEDICARE, MEDICAID, SELFPAY | PROVIDERS: PCP Nurse Practitioner Family; Visit Provider Nurse Practitioner Family | DX: Z00.00 Encounter for general adult medical examination without abnormal findings (principal); H61.21 Impacted cerumen, right ear | CPT/HCPCS: 69209; 96127; 99395 ==

== ENCOUNTER 2025-07-15 15:07 | Outpatient (AMB) | payer MEDICARE, MEDICAID, SELFPAY ==
[2025-07-15 15:15] VITALS: BP 127/62; PULSE 59; O2SAT 98; BMI 25.4
--- NOTE | 2025-07-15 15:15 | A.OFFVIS_ITS ---
Vital Signs 07/15/25 15:15 Height 6 ft 2 in Weight 198 lb BMI 25.4 BP 127/62 Blood Pressure Location Lt brachial Position Sitting Pulse 59 Pulse Source Pulse Oximeter Pulse Oximetry (%) 98 Oxygen Delivery Method Room Air Intake Visit Reasons: Asthma Allergies mold Allergy (Unknown, Verified 07/15/25 15:17) Unknown pollen Allergy (Unknown, Uncoded 05/23/25 10:16) Unknown HPI HPI Asthma: Details: Rogelio is a pleasant 34 year old male, never tobacco smoker, current every day marijuana, with underlying childhood asthma. He was referred by PCP for pulmonary evaluation. The patient has a history of asthma since childhood, which was reportedly worse when younger and has improved with age. The patient considers the asthma to be mild and has never been intubated or hospitalized for breathing difficulties. Past asthma attacks have reportedly resolved without an inhaler. The patient reports occasional wheezing 2-3 days per week, typically occurring only after smoking cannabis heavily. The wheezing is described as light and resolves spontaneously within approximately half an hour without the use of an albuterol inhaler. The patient denies cough, chest tightness, and any history of recurrent respiratory infections such as bronchitis or pneumonia. The patient smokes cannabis daily, primarily utilizing dabbing and vaping. The patient engages in two hours of intense exercise once a week and notes having to slow down at times, taking longer breaks between sets, though is always able to complete the workout. An albuterol inhaler was prescribed in January, but the patient does not use it and is unsure of its location. He has also been prescribed Symbicort in the past however does not use. Family history is significant for a mother with chronic bronchitis and parents who were heavy smokers, resulting in secondhand smoke exposure during childhood. A CT scan in December revealed a 2 mm pulmonary nodule in the right middle lobe, which the patient was told was benign. Allergy testing was positive for a mold allergy. Recent PFT revealed FEV1/FVC 76, TLC 128% RV 134% and DLCO 92%. Increa sed total lung capacity suggests hyperinflation and increased residual volume suggestive of air trapping. 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 Cognitive needs: No Hearing needs: No Vision needs: No Review of Systems Const Denies chills, Denies excessive sweating, Denies fever(s), Denies headache(s) and Denies night sweats Eyes Denies dry eyes, Denies irritation and Denies itchy eyes ENT Reports Normal hearing present, Denies headache(s), Denies nasal congestion, Denies nasal discharge, Denies post nasal drip and Denies sore throat Card Denies chest pain, Denies chest pain at rest, Denies chest pain with activity, Denies claudication, Denies leg edema, Denies orthopnea and Denies paroxysmal nocturnal dyspnea Resp Denies chest congestion, Denies cough, Denies excessive phlegm production, Denies pain on inspiration, Denies pain with cough and Denies stridor Musc Denies myalgias Neuro Reports Normal hearing present and Denies headache(s) Endo Denies excessive sweating Sha/Lymph Denies lymphadenopathy Aller/Immun Denies itchy eyes and Denies seasonal rhinorrhea Physical Exam Vital Signs: Last Vital Signs Pulse 59 07/15/25 15:15 BP 127/62 07/15/25 15:15 Pulse Ox 98 07/15/25 15:15 Oxygen Delivery Method Room Air 07/15/25 15:15 BMI result Body Mass Index 25.4 Const General: cooperative, healthy appearing, comfortable, no acute distress, well developed and alert Orientation/consciousness: patient oriented x3 Limitations: no limitations HEENT Head: Yes normal to inspection, Yes normocephalic and Yes atraumatic Ears: hearing grossly normal bilaterally and external ears normal Eyes General: appearance normal, both eyes and all related structures Eyelids: Yes eyelids normal Sclerae: sclerae normal EOM: EOMs intact bilaterally Neck Neck: Yes normal visual inspection and Yes no lymphadenopathy Lymphatic: no lymphadenopathy noted Chest Chest palpation & inspection: normal inspection of the chest Resp Effort & Inspection: normal respiratory effort, able to speak in complete sentences, no audible wheezes, no cough, no stridor, not tachypneic, no tripod positioning, no use of accessory muscles and prolonged expiratory phase Auscultation: clear to auscultation bilaterally Cardio Jugular venous distension: no JVD Rate: regular rate Rhythm: regular rhythm Skin Other: warm, dry General skin exam: no rashes or lesions noted Neuro General: patient oriented x3 Cranial nerves: Yes Normal hearing present Cognition (Neuro): normal cognition Gait exam (Neuro): Normal gait present Extrem General: Yes normal to inspection, Yes capillary refill normal, Yes no clubbing, cyanosis or edema and Yes no pedal edema Psych Appearance: grossly normal and well kempt Speech and movement: Normal speech and movement present and Clear speech present Affect: normal affect Attitude: cooperative Thought process: Normal thought process present Thought content: Normal thought content present Insight: Good insight present (Psych) Judgement: Good judgement present (Psych) Results Reviewed Results Reviewed: [address] [address] [address] Scan Report Signed Patient: Rogelio Ortega MR#: [id number] : 1990 Acct:[id number] Age/Sex: 34 / M ADM Date: 12/21/24 Loc: HO.CT Attending Dr: Malcolm [facility] Ordering Physician: Malcolm Lakhani Date of Service: 12/21/24 Procedure(s): CT chest wo IV con Accession Number(s): [id number] cc: Malcolm Lakhani [facility] Report Number: [id number]: Total DLP = 233.00 mGy-cm CLINICAL HISTORY: J45.909 - Unspecified asthma, uncomplicated CT chest without contrast Comparison: None Findings: The heart is normal size. The visualized thyroid and mediastinum are unremarkable. No consolidation or effusion. 2 mm nodule incidentally noted within the right middle lobe. No obvious focus of air trapping. The upper abdomen is unremarkable. The bones are intact. IMPRESSION: 1. No acute cardiopulmonary disease. 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 This air trapping is consistent with the patient's long-standing sensation of incomplete exhalation. Although the patient reports minimal daily symptoms, the wheezing after smoking, prolonged exhalation on exam, and PFT findings are consistent with poorly controlled asthma. A prescription for Symbicort, one inhalation twice a day, will be sent and importance of good oral hygiene was reviewed to prevent thrush. A prescription for an albuterol inhaler will also be sent for as-needed use for wheezing. The patient has a 2 mm non-specific nodule in the right middle lobe, found on a CT scan in December. Given the small size, this is considered low risk and will be monitored. A repeat chest CT scan will be scheduled in one year to ensure stability. The patient has a history of daily cannabis use, currently through dabbing and vaping, which is associated with symptoms of wheezing. The risks of vaping, including lung inflammation from additives like vitamin E oil, were discussed. Discussed importance of cessation. Prior RAST testing positive for mold, discussed ways to minimize allergen exposure. All questions were answered and patient is in agreement of plan. Will follow up in 3 months or sooner if needed. Patient was informed and verbally consented to the use of an ambient scribe for clinic note documentation during this visit. Orders: Orders CT chest wo IV con 6 Months R91.1 - Solitary pulmonary nodule Medications: Changed From budesonide-formoterol 80-4.5 mcg/actuation (Symbicort) 2 puffs inhalation BID 30 days 10.2 grams 3RF To budesonide-formoterol 80-4.5 mcg/actuation (Symbicort) 1 puff inhalation BID 10.2 grams 3RF 30 days Refilled albuterol sulfate 90 mcg/actuation (Ventolin HFA) 2 puffs inhalation Q6H PRN 1 ea 3RF shortness of breath or wheezing Coding Level of Care Code New Pt Level 4 (93645) Diagnoses Asthma J45.909 Pulmonary nodule R91.1 Environmental allergies Z91.09
== END 2025-07-15 15:43 | disposition home or self-care (01) ==
LOC: HO.HPS 15:08
PROVIDERS: PCP Nurse Practitioner Family; Referring Provider Nurse Practitioner Family; Visit Provider Nurse Practitioner Family
DX: J45.909 Unspecified asthma, uncomplicated (principal); R91.1 Solitary pulmonary nodule; Z91.09 Other allergy status, other than to drugs and biological substances
CPT/HCPCS: 99204

== ENCOUNTER → 2025-07-15 15:07 | Outpatient (BNVA) | payer MEDICARE, MEDICAID, SELFPAY | PROVIDERS: PCP Nurse Practitioner Family; Referring Provider Nurse Practitioner Family; Visit Provider Nurse Practitioner Family | DX: J45.909 Unspecified asthma, uncomplicated (principal); R91.1 Solitary pulmonary nodule; Z91.09 Other allergy status, other than to drugs and biological substances | CPT/HCPCS: 99202 ==